=== PATIENT | female | born 1990 | race Caucasian/White ===

== ENCOUNTER 2018-10-29 01:10 | Emergency (ER) | payer OTHER ==
--- OUTSIDE RECORDS SUMMARY | 2018-10-29 01:21 | XMS REPORT | Continuity of Care Document ---
:1990 External Reference #:[id number] Author Name Tim Reed M.D. Address [address] [facility] [address] [place] [address] Care Team Providers Name Role Phone HCP given Primary Care Physician Unavailable Payers Type Date Identification Numbers Payment Provider Subscriber Policy Number: [id number] [employer] [facility] Gina Whittaker PayID: [id number] [address] [place] [id number] Policy Number: [id number] Medicaid Gina Whittaker PayID: [id number] [place] [address] Effective: 2012 Policy Number: [employer] ([place] MGD) Gina Whittaker [id number] Expires: 2018 PayID: [id number] [address] [place] [id number] Advance Directives Description No Information Available Problems Date Description Provider Status Onset: 09/07/2014 Opioid dependence Tim Reed M.D. Active Onset: 09/07/2014 Anxiety state Tim Reed M.D. Active Onset: 06/18/2015 Opioid dependence, uncomplicated Tim Reed M.D. Active Onset: 09/14/2015 Dysthymic disorder Tim Reed M.D. Active Family History Date Family Member(s) Problem(s) Comments Mother High Blood Pressure : (06/2017) Mother due to Breast Cancer (age 48 Years) Mother Hypercholesterolemia Children 5 Fourth Daughter Clubbed Feet Siblings 4 4 brothers : (06/2017) Maternal Grandmother due to Natural Causes Social History Type Date Description Comments Sex Unknown Education Ged Marital Status Work Status Currently Working at [employer] (started March 2017) Tobacco Use Reviewed: current cigarette smoker 1ppd 06/24/14 Smoking Status Reviewed: current cigarette smoker 1ppd 01/25/17 ETOH Use 06/24/2014 Denies alcohol use Recreational Drug Use Has Used Illegal Drugs smoking MJ at age 14, In The Past opiates startin at age 17 (initially pills, then progressively stronger meds, to Opana and Oxy, then to heroin (snorted, never used IV drugs). 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 Exercise Type/Frequency Exercises regularly Sun Exposure Uses sunscreen Seat Belt/Car Seat Seat Belt Use - Yes Currently Active Patient is currently sexually active Condom Use Uses Condoms Age 1st [place] 15 Years Old # Partners in a 06/24/2014 Partners 1-5 Lifetime STD's 11/2015 Trichomoniasis Additional Info Sexual preference is men Allergies, Adverse Reactions, Alerts Date Description Reaction Status Severity Comments 06/24/2014 Penicillins Active anaphylactic reaction 11/19/2015 Sulfa Active hallucinating, skin sunburned Medications Medication Date Status Form Strength Qnty SIG Indications Ordering Provider Buprenorphine 10/25/ Active Tablets 8mg 90tabs 1 tablet F11.20 [place], HCL 2019 Sub 3x/day; Tim, prescriber# Rodney [id number]; may fill immediately Sertraline HCL 01/08/ Active Tablets 100mg 30tabs 1 by mouth O90.6 [place], 2018 every day Tim for mood M.D. F34.1 F41.9 Omeprazole 10/31/[address] 40mg 30caps 1 by mouth K29.00 [place], every morning Rodney Dumont for belly pain/acid reflux K21.9 Famotidine 10/31/2017 Active Tablets 20mg 30tabs take one tablet K29.00 [place], by mouth 10 Rodney Dumont minutes before supper; for belly pain/acid reflux K21.9 Sucralfate 10/31/2017 Active Tablets 1gm 40tabs 1 tab 1 hour K29.00 [place], before meals or Tim food and at M.DNestor bedtime; as needed for burning belly pain Ibuprofen 08/18/2014 Active Tablets 800m 1 by mouth 724.5 [place]ff, g every 8 hours Tim, as needed for M.D. back pain Gabapentin 08/15/2014 Active Tablets 600m 90tabs Take 1 Tablet F41.9 [place], g By Mouth Every Tim, Day AT 9Am, M.D. 12PM, And 5PM as Needed Suboxone 10/14/2018 Hx Film 8-2m 90units 1 by mouth F11.20 [place]ff, - g 3x/day; Rx due Tim, 10/25/2018 10/16/18; Rodney prescriber# [id number] Buprenorphine 08/16/2018 Hx Tablets 8mg 90tabs 1 tablet F11.20 [place], HCL - Sub 3x/day; Tim, 10/14/2018 prescriberNancy Stevens [id number] Buprenorphine 06/21/2018 Hx Tablets 8mg 90tabs 1/2 tablet F11.20 [place], HCL - Sub dissolved under [place], 08/16/2018 tongue q4h as M.D. needed for tooth pain; prescriber# [id number] Buprenorphine 01/08/2018 Hx Tablets 8mg 60tabs 1/2 tab F11.20 [place], HCL - Sub dissolved under [place], 06/21/2018 tongue 4x/day; M.D. rx due 05/25/18; prescriber# [id number] Buprenorphine 12/11/2017 Hx Tablets 8mg 60tabs 1/2 tab F11.20 [place], HCL - Sub dissolved under [place], 01/08/2018 tongue 4x/day M.D. x2d then 3x/d x3d then 2x/d; inc to 4x/d after dental surgery; prescriber# [id number] Buprenorphine 12/05/2017 Hx Tablets 8mg 14tabs 1/2 tablet F11.20 [place], HCL - Sub dissolved under [place], 12/11/2017 tongue 4x/day, M.D. for pain and opiate addiction; prescriber# [id number] Clindamycin HCL 10/29/2017 Hx Capsules 150m 1 caps by mouth Noren, - g three times a Stephen, 11/05/2017 day for DDS infected teeth Clindamycin HCL 09/03/2017 Hx Capsules 300m Take One Unknown - g Capsule By 09/17/2017 Mouth Every 6 Hours Bupropion HCL ER 02/07/2017 Hx Tablets 150m 60tabs 1 by mouth qam F17.210 [place]ff, (SR) - ER 12HR g x3 days then 1 Tim, 03/09/2017 pill 2x/day; M.D. take 2nd dose no later than mid afternoon; start 8-14 days before quit date Erythromycin 08/28/2016 Hx Tablets 500m 28tabs Take 1 Tablet Unknown Base - g By Mouth Every 09/09/2016 6 Hours Metronidazole 02/14/2016 Hx Tablets 500m 4tabs 4 by mouth x1 Z20.2 [place], - g dose for Tim, 02/15/2016 possible M.D. trichomoniasis Metronidazole 11/11/2015 Hx Tablets 250m 27tabs 1 tablet po Unknown - g twice a day 11/25/2015 Phenazopyridine 11/08/2015 Hx Tablets 100m 7tabs take 2 tablets Unknown HCL - g by mouth 3 11/15/2015 times a day as needed Sulfamethoxazole 11/08/2015 Hx Tablets 800- 14tabs take 1 tablet Unknown /Trimethoprim DS - 160m by mouth twice 11/09/2015 g a day x 7 days Sertraline HCL 09/14/2015 Hx Tablets 50mg 30tabs take 1 tablet O90.6 [place], - daily for mood Tim, 01/08/2018 M.D. F34.1 F41.9 Sertraline HCL 08/17/2015 - Hx Tablets 50mg 30tabs take 1/2 O90.6 [place], 09/14/2015 tablet daily Rodney Dumont for 1 week then 1 tab daily; for mood F34.1 F41.9 Buprenorphine 02/05/2015 - Hx Tablets 8mg 30tabs 1 by mouth F11.20 [place], HCL 12/05/2017 Sub every Tim, morning; for M.D. opioid addiction; prescriber# [id number]; Rx due 12/06/17 Folic Acid 02/05/2015 - Hx Tablets 400mcg 30tabs 1 by mouth V22.2 [place], 02/06/2016 every day Tim, during M.D. Buprenorphine 01/12/2015 - Hx Tablets 8-2mg 30tabs 1 by mouth 304.00 [place]ff, HCL-Naloxone HCL 01/12/2015 Sub every Tim, morning; M.D. suboxone prescriber# [id number] Buspar 09/13/2014 - Hx Tablet 10mg 60tabs Take 1 Tablet [place]ff, 08/16/2015 AT 8Am And Tim 8SHANNAN Stevens Buspirone HCL 08/15/2014 - Hx Tablets 10mg 60tabs Take 1 Tablet 300.00 Unknown 09/13/2014 AT 8 Am And again at 8 PM Mirtazapine 08/15/2014 - Hx Tablets 15mg 30tabs Take 1 Tablet F41.9 [place], 10/11/2015 AT 5PM Rodney Dumnot G47.00 Ibuprofen 08/14/2014 - Hx Tablets 800mg 1 by mouth every 6 724.5 Unknown 08/18/2014 hours as needed for back pain Suboxone 08/14/2014 - Hx Film 8-2mg 30uni 1 by mouth every 304.00 [place], 02/11/2015 ts morning; due Tim, 01/12/15; suboxone Rodney prescriber# [id number] Naproxen - Hx Tablets 250mg 1 by mouth three Unknown 11/05/2017 times a day as needed for back pain; minimize use to minimize gastrointestinal bleeding risk Immunizations CPT Code Status Date Vaccine Lot # [id number] Given 06/21/2018 Influenza Virus Vaccine, Quadrivalent, Split, [id number] Preservative Free 60039 Given 07/02/2017 Influenza Virus Vaccine, Quadrivalent, Split, [id number] Preservative Free 62009 Given 07/14/2016 Influenza Virus Vaccine, Quadrivalent, Split, [id number] Preservative Free 07498 Given 07/26/2015 Influenza Virus Vaccine, Quadrivalent, Split, Preservative Free 65745 Given 07/19/2015 Adacel or Boostrix, TDaP Vital Signs Date Vital Result Comment 10/25/2018 4:36pm BP Systolic 136 mmHg BP Diastolic 76 mmHg 10/14/2018 11:22am BP Systolic 110 mmHg BP Diastolic 70 mmHg Weight 182.00 lb 09/16/2018 10:36am BP Systolic 120 mmHg BP Diastolic 78 mmHg Weight 180.00 lb w/boots 08/16/2018 11:43am BP Systolic 114 mmHg BP Diastolic 68 mmHg Height 63 inches 5'3" Weight 174.00 lb BMI (Body Mass Index) 30.8 kg/m2 07/19/2018 11:52am BP Systolic 120 mmHg BP Diastolic 62 mmHg 06/21/2018 11:36am BP Systolic 110 mmHg BP Diastolic 70 mmHg Weight 173.00 lb 05/24/2018 1:20pm BP Systolic 110 mmHg BP Diastolic 70 mmHg Weight 175.00 lb with sneakers 04/22/2018 2:27pm BP Systolic 122 mmHg BP Diastolic 70 mmHg 03/20/2018 10:45am BP Systolic 120 mmHg BP Diastolic 60 mmHg Weight 171.00 lb 02/20/2018 11:39am BP Systolic 110 mmHg BP Diastolic 60 mmHg Weight 169.00 lb w/shoes 01/21/2018 3:29pm BP Systolic 108 mmHg BP Diastolic 76 mmHg Weight 169.00 lb w/shoes 01/08/2018 2:57pm BP Systolic 104 mmHg BP Diastolic 58 mmHg Weight 168.00 lb 12/11/2017 4:13pm BP Systolic 108 mmHg BP Diastolic 64 mmHg Weight 159.00 lb 12/03/2017 3:33pm BP Systolic 106 mmHg BP Diastolic 70 mmHg Height 63 inches 5'3" Weight 164.00 lb BMI (Body Mass Index) 29.0 kg/m2 11/06/2017 2:34pm BP Systolic 128 mmHg BP Diastolic 70 mmHg 10/31/2017 10:18am BP Systolic 110 mmHg BP Diastolic 70 mmHg Body Temperature 98.4 F Weight 167.00 lb w/boots and coat 10/03/2017 10:33am BP Systolic 100 mmHg BP Diastolic 68 mmHg Weight 166.00 lb w/boots 09/04/2017 2:16pm BP Systolic 104 mmHg BP Diastolic 60 mmHg Weight 164.00 lb w/shoes 08/07/2017 3:04pm BP Systolic 102 mmHg BP Diastolic 70 mmHg Weight 167.00 lb w/boots 07/02/2017 1:21pm BP Systolic 122 mmHg BP Diastolic 68 mmHg Weight 166.00 lb 06/08/2017 4:55pm BP Systolic 100 mmHg BP Diastolic 68 mmHg Weight 168.00 lb with sneakers 05/09/2017 10:38am BP Systolic 100 mmHg BP Diastolic 60 mmHg Height 63 inches 5'3" Weight 170.00 lb BMI (Body Mass Index) 30.1 kg/m2 04/10/2017 12:50pm BP Systolic 110 mmHg BP Diastolic 78 mmHg Weight 174.00 lb with sneakers 03/09/2017 3:22pm BP Systolic 118 mmHg BP Diastolic 80 mmHg Weight 175.00 lb 02/07/2017 11:17am BP Systolic 102 mmHg BP Diastolic 70 mmHg Weight 175.00 lb with shoes 01/25/2017 2:29pm BP Systolic 90 mmHg BP Diastolic 60 mmHg Body Temperature 98.2 F Weight 170.00 lb w/shoes 01/08/2017 12:27pm BP Systolic 100 mmHg BP Diastolic 50 mmHg Weight 170.00 lb 12/05/2016 10:59am BP Systolic 104 mmHg BP Diastolic 64 mmHg 11/06/2016 1:24pm BP Systolic 106 mmHg BP Diastolic 60 mmHg Weight 168.00 lb 10/06/2016 1:24pm BP Systolic 104 mmHg BP Diastolic 50 mmHg Weight 165.00 lb w/shoes and coat 09/08/2016 10:47am BP Systolic 110 mmHg BP Diastolic 60 mmHg Height 63 inches 5'3" w/shoes Weight 160.00 lb w/shoes BMI (Body Mass Index) 28.3 kg/m2 08/09/2016 8:37am BP Systolic 116 mmHg BP Diastolic 70 mmHg 07/14/2016 12:53pm BP Systolic 115 mmHg BP Diastolic 78 mmHg Weight 160.00 lb with shoes 06/12/2016 10:56am BP Systolic 108 mmHg BP Diastolic 60 mmHg Weight 154.00 lb with sandals 05/10/2016 11:08am BP Systolic 108 mmHg BP Diastolic 60 mmHg 04/14/2016 9:46am BP Systolic 106 mmHg BP Diastolic 60 mmHg Weight 149.00 lb 03/15/2016 12:13pm BP Systolic 110 mmHg BP Diastolic 70 mmHg Weight 149.00 lb 02/14/2016 1:31pm BP Systolic 110 mmHg BP Diastolic 76 mmHg Weight 149.00 lb w/shoes 01/14/2016 10:59am BP Systolic 104 mmHg BP Diastolic 70 mmHg Height 63 inches 5'3" Weight 132.00 lb BMI (Body Mass Index) 23.4 kg/m2 12/17/2015 12:12pm BP Systolic 124 mmHg BP Diastolic 56 mmHg 11/19/2015 4:30pm BP Systolic 100 mmHg BP Diastolic 66 mmHg Body Temperature 98.0 F Weight 131.00 lb w/shoes 11/09/2015 9:45am BP Systolic 114 mmHg BP Diastolic 66 mmHg Weight 137.00 lb w/shoes 10/12/2015 10:10am BP Systolic 110 mmHg BP Diastolic 60 mmHg Weight 139.00 lb with boots 09/14/2015 11:59am BP Systolic 98 mmHg BP Diastolic 60 mmHg Weight 132.00 lb with boots 08/17/2015 10:54am BP Systolic 114 mmHg BP Diastolic 60 mmHg Weight 130.00 lb 07/20/2015 11:35am BP Systolic 98 mmHg BP Diastolic 50 mmHg Height 63 inches 5'3" Weight 140.00 lb BMI (Body Mass Index) 24.8 kg/m2 06/18/2015 10:33am BP Systolic 98 mmHg BP Diastolic 58 mmHg Weight 145.00 lb with shoes 05/21/2015 1:46pm BP Systolic 104 mmHg BP Diastolic 58 mmHg Weight 140.00 lb 05/10/2015 3:19pm BP Systolic 110 mmHg BP Diastolic 62 mmHg Weight 139.00 lb 04/19/2015 4:44pm BP Systolic 104 mmHg BP Diastolic 64 mmHg Weight 137.00 lb 04/09/2015 11:55am BP Systolic 102 mmHg BP Diastolic 60 mmHg Weight 143.00 lb with shoes 03/05/2015 11:57am BP Systolic 115 mmHg BP Diastolic 62 mmHg Weight 135.00 lb 02/05/2015 12:05pm BP Systolic 110 mmHg BP Diastolic 50 mmHg Weight 139.00 lb shoes on 01/08/2015 11:39am BP Systolic 104 mmHg BP Diastolic 72 mmHg Weight 146.00 lb shoes on 12/11/2014 11:22am BP Systolic 128 mmHg BP Diastolic 80 mmHg Height 63 inches 5'3" Weight 147.00 lb BMI (Body Mass Index) 26.0 kg/m2 11/13/2014 11:26am BP Systolic 106 mmHg BP Diastolic 58 mmHg Weight 144.00 lb 10/19/2014 1:13pm BP Systolic 114 mmHg BP Diastolic 76 mmHg Weight 141.00 lb shoes on 10/05/2014 12:24pm BP Systolic 104 mmHg BP Diastolic 60 mmHg Weight 141.00 lb w/shoes 09/21/2014 10:34am BP Systolic 108 mmHg BP Diastolic 68 mmHg Weight 141.00 lb boots on 09/07/2014 10:14am BP Systolic 112 mmHg BP Diastolic 78 mmHg 08/31/2014 1:52pm BP Systolic 112 mmHg BP Diastolic 72 mmHg Weight 142.00 lb 08/24/2014 3:19pm BP Systolic 120 mmHg BP Diastolic 82 mmHg Weight 144.00 lb 08/18/2014 11:18am BP Systolic 124 mmHg BP Diastolic 70 mmHg Weight 147.00 lb 06/29/2014 12:07pm BP Systolic 104 mmHg BP Diastolic 60 mmHg Weight 136.00 lb shoes on 06/24/2014 2:27pm BP Systolic 100 mmHg BP Diastolic 60 mmHg Height 62.75 inches 5'2.75" Weight 131.00 lb BMI (Body Mass Index) 23.4 kg/m2 Last Menstrual Period [id number] Results Test Date Facility Test Result H/L Range Note Urine Drug Screen Inhouse 09/27/2018 In House Ua Cocaine - Ua Opiates - Ua Amphetamines - Urine Methanphetamines - Urine Benzodiazepines QN [place] - Urine Oxycodone QL - Urine Drug Screen Inhouse 09/06/2018 In House Ua Cocaine - Ua Opiates - Ua Amphetamines - Urine Methanphetamines - Urine Benzodiazepines QN [place] - Urine Oxycodone QL - Urine Drug Screen Inhouse 05/24/2018 In House Ua Cocaine - Ua Opiates - Ua Amphetamines - Urine Methanphetamines - Urine Benzodiazepines QN [place] - Urine Oxycodone QL - Urine Drug Screen Inhouse 09/04/2017 In House Ua Cocaine - Ua Opiates - Ua Amphetamines - Urine Methanphetamines - Urine Benzodiazepines QN [place] - Urine Oxycodone QL - Chlamydia/GC [place] 01/21/2017 [facility]. Chlamydia Negative Negative 1 LABORATORY Trachomatis, [place] [phone] Neisseria Gonorrhoeae, [place] Negative Negative Please note: (SEE NOTE) 2 Urine Drug Screen Inhouse 10/06/2016 In House Ua Cocaine - Ua Opiates - Ua Amphetamines - Urine Methanphetamines - Urine Benzodiazepines QN [place] - Urine Oxycodone QL - Urine Drug Screen Inhouse 06/12/2016 In House Ua Cocaine _ Ua Opiates _ Ua Amphetamines _ Urine Methanphetamines _ Urine Benzodiazepines QN [place] _ Urine Oxycodone QL _ Urine Drug Screen Inhouse 12/17/2015 In House Ua Cocaine - Ua Opiates - Ua Amphetamines - Urine Methanphetamines - Urine Benzodiazepines QN [place] - Urine Oxycodone QL - Urinalysis Profile 11/13/2015 [facility] Urine Color Yellow N [phone] Urine Appearance Clear N Urine Specific [place] 1.009 Low 1.010-1.030 Urine pH 7.0 N 5-9 Urine Urobilinogen Negative N Negative Urine Ketones Negative N Negative Urine Protein Negative N Negative Urine Leukocytes Trace Abnormal Negative Urine Blood 2+ Abnormal Negative Urine Nitrite Negative N Negative Urine Bilirubin Negative N Negative Urine Glucose Negative N Negative Urine White Blood Cell Trace(0-5/hpf) N Absent Urine Red Blood Cell Trace(0-2/hpf) N Absent Urine Bacteria Absent N Absent Urine Squamous Epithelial Cell Present Abnormal Absent Laboratory test 11/13/2015 [facility] Urine Culture And SEE RESULT 3 finding [phone] Sensitivities BELOW Laboratory test 11/11/2015 [facility] [place]/Yeast: SEE RESULT 4 finding [phone] Vaginal Dna BELOW GC/Chlamydia 11/11/2015 [facility] Chlamydia Negative N Negative Amplified Rna [phone] trachomatis Rna Neisseria gonorrhoeae (GC) Rna Negative N Negative Laboratory 11/11/2015 [facility] Trichomonas Positive Abnormal Negative 5 test finding [phone] vaginalis Rna Urinalysis 11/11/2015 [facility] Urine Color [place] N Profile [phone] Urine Appearance Cloudy N Urine Specific [place] 1.030 N 1.010-1.030 Urine pH 6.0 N 5-9 Urine Urobilinogen Negative N Negative Urine Ketones Negative N Negative Urine Protein 3+(>=500 mg/dL) Abnormal Negative Urine Leukocytes 2+ Abnormal Negative Urine Blood 3+ Abnormal Negative * * Abnormal Negative 6 Urine Nitrite Negative N Negative Urine Bilirubin Negative N Negative Urine Glucose Negative N Negative Urine White Blood Cell 3+(>20/hpf) Abnormal Absent Urine Red Blood Cell 3+(>10/hpf) Abnormal Absent Urine Bacteria Absent N Absent Urine Squamous Epithelial Cell Present Abnormal Absent Laboratory test 11/11/2015 [facility] Urine Culture And SEE RESULT 7 finding [phone] Sensitivities BELOW CBC Auto Diff 11/08/2015 [facility] White Blood Count 7.3 10^3/uL N 3.5-10 [phone] Red Blood Count 4.82 10^6/uL N 4.0-5.4 Hemoglobin 12.4 g/dL N 12.0-16.0 Hematocrit 40 % N 35-47 Mean Corpuscular Volume 83 fL N 80-97 Mean Corpuscular Hemoglobin 26 pg Low 27-31 Mean Corpuscular HGB Conc 31 g/dL N 31-36 Red Cell Distribution Width 17 % High 10.5-15 Platelet Count 278 10^3/uL N 150-450 Mean Platelet Volume 8 um3 N 7.4-10.4 Abs Neutrophils 3.9 10^3/uL N 1.5-7.7 Abs Lymphocytes 2.5 10^3/uL N 1.0-4.8 Abs Monocytes 0.6 10^3/uL N 0-0.8 Abs Eosinophils 0.4 10^3/uL N 0-0.6 Abs Basophils 0.1 10^3/uL N 0-0.2 Abs Nucleated RBC 0 10^3/uL N Granulocyte % 53.3 % N 38-83 Lymphocyte % 33.6 % N 25-47 Monocyte % 7.5 % N 1-9 Eosinophil % 4.8 % N 0-6 Basophil % 0.8 % N 0-2 Nucleated Red Blood Cells % 0.1 N Urinalysis Profile 11/08/2015 [facility] Urine Color Straw N [phone] Urine Appearance Clear N Urine Specific [place] 1.004 Low 1.010-1.030 Urine pH 8.0 N 5-9 Urine Urobilinogen Negative N Negative Urine Ketones Negative N Negative Urine Protein Negative N Negative Urine Leukocytes 1+ Abnormal Negative Urine Blood 3+ Abnormal Negative Urine Nitrite Negative N Negative Urine Bilirubin Negative N Negative Urine Glucose Negative N Negative Urine White Blood Cell 3+(>20/hpf) Abnormal Absent Urine Red Blood Cell 3+(>10/hpf) Abnormal Absent Urine Bacteria Absent N Absent Urine Squamous Epithelial Cell Present Abnormal Absent Comp Metabolic Panel 11/08/2015 [facility] Sodium 136 mmol/L N 133- 145 [phone] Potassium 4.5 mmol/L N 3.5-5.0 Chloride 106 mmol/L N 101-111 Co2 Carbon Dioxide 26 mmol/L N 22-32 Anion Gap 4 mmol/L N 2-11 Glucose 92 mg/dL N 70-100 Blood Urea Nitrogen 7 mg/dL N 6-24 Creatinine 0.65 mg/dL N 0.51-0.95 BUN/Creatinine Ratio 10.8 N 8-20 Calcium 9.5 mg/dL N 8.6-10.3 Total Protein 7.1 g/dL N 6.4-8.9 Albumin 4.2 g/dL N 3.2-5.2 Globulin 2.9 g/dL N 2-4 Albumin/Globulin Ratio 1.4 N 1-3 Total Bilirubin 0.50 mg/dL N 0.2-1.0 Alkaline Phosphatase 55 U/L N 34-104 Alt 13 U/L N 7-52 Ast 16 U/L N 13-39 Egfr Non- 111.1 N >60 Egfr 142.8 N >60 8 Laboratory test finding 11/08/2015 [facility] Magnesium 1.9 mg/dL N 1.9-2.7 [phone] HCG < 0.60 mIU/mL N 9 TSH (Thyroid Stim Horm) 0.92 ?IU/mL N 0.34-5.60 Urine Culture And Sensitivities SEE RESULT BELOW 10 Laboratory test 07/14/2015 [facility] Rupture of No Membrane N No rupture 11 finding [phone] Membranes Rupt <SEE NOTE> Type & Screen 07/14/2015 [facility] Patient Blood A Positive N [phone] Type Antibody Screen NEGATIVE N CBC No Diff 07/14/2015 [facility] White Blood Count 13.8 10^3/uL High 4.8-10.8 [phone] Red Blood Count 3.70 10^6/uL Low 4.0-5.4 Hemoglobin 10.2 g/dL Low 12.0-16.0 Hematocrit 32 % Low 35-47 Mean Corpuscular Volume 85 fL N 80-97 Mean Corpuscular Hemoglobin 28 pg N 27-31 Mean Corpuscular HGB Conc 32 g/dL N 31-36 Red Cell Distribution Width 14 % N 10.5-15 Platelet Count 178 10^3/uL N 150-450 Mean Platelet Volume 7 um3 Low 7.4-10.4 Laboratory test 07/01/2015 [facility] Urine Culture And SEE RESULT 12 finding [phone] Sensitivities BELOW Urinalysis Profile 07/01/2015 [facility] Urine Color [place] N [phone] Urine Appearance Clear N Urine Specific [place] 1.027 N 1.010-1.030 Urine pH 6.0 N 5-9 Urine Urobilinogen Positive Abnormal Negative Urine Ketones Negative N Negative Urine Protein 1+(30 mg/dL) Abnormal Negative Urine Leukocytes 2+ Abnormal Negative Urine Blood Negative N Negative Urine Nitrite Negative N Negative Urine Bilirubin 1+ Abnormal Negative Urine Glucose Negative N Negative Urine White Blood Cell 3+(>20/hpf) Abnormal Absent Urine Red Blood Cell 3+(>10/hpf) Abnormal Absent Urine Bacteria 1+ Abnormal Absent Urine Squamous Epithelial Cell Present Abnormal Absent Urine Drug Screen Inhouse 05/21/2015 In House Ua Cocaine - Ua Opiates - Ua Amphetamines - Urine Methanphetamines - Urine Benzodiazepines QN [place] - Urine Oxycodone QL - Comp Metabolic Panel 04/20/2015 [facility] Sodium 132 mmol/L Low 133- 145 [phone] Potassium 4.0 mmol/L N 3.5-5.0 Chloride 103 mmol/L N 101-111 Co2 Carbon Dioxide 21 mmol/L Low 22-32 Anion Gap 8 mmol/L N 2-11 Glucose 82 mg/dL N 70-100 Blood Urea Nitrogen 4 mg/dL Low 6-24 Creatinine 0.46 mg/dL Low 0.51-0.95 BUN/Creatinine Ratio 8.7 N 8-20 Calcium 8.5 mg/dL Low 8.6-10.3 Total Protein 6.1 g/dL Low 6.4-8.9 Albumin 3.4 g/dL N 3.2-5.2 Globulin 2.7 g/dL N 2-4 Albumin/Globulin Ratio 1.3 N 1-3 Total Bilirubin 0.40 mg/dL N 0.2-1.0 Alkaline Phosphatase 73 U/L N 34-104 Alt 14 U/L N 7-52 Ast 17 U/L N 13-39 Egfr Non- 166.9 N >60 Egfr 214.6 N >60 13 CBC Auto Diff 04/20/2015 [facility] White Blood Count 7.9 10^3/uL N 4.8-10.8 [phone] Red Blood Count 4.27 10^6/uL N 4.0-5.4 Hemoglobin 12.1 g/dL N 12.0-16.0 Hematocrit 38 % N 35-47 Mean Corpuscular Volume 88 fL N 80-97 Mean Corpuscular Hemoglobin 28 pg N 27-31 Mean Corpuscular HGB Conc 32 g/dL N 31-36 Red Cell Distribution Width 15 % N 10.5-15 Platelet Count 269 10^3/uL N 150-450 Mean Platelet Volume 8 um3 N 7.4-10.4 Abs Neutrophils 4.5 10^3/uL N 1.5-7.7 Abs Lymphocytes 2.5 10^3/uL N 1.0-4.8 Abs Monocytes 0.6 10^3/uL N 0-0.8 Abs Eosinophils 0.2 10^3/uL N 0-0.6 Abs Basophils 0.1 10^3/uL N 0-0.2 Abs Nucleated RBC 0 10^3/uL N Granulocyte % 56.7 % N 38-83 Lymphocyte % 31.9 % N 25-47 Monocyte % 7.8 % N 1-9 Eosinophil % 2.9 % N 0-6 Basophil % 0.7 % N 0-2 Nucleated Red Blood Cells % 0 N Urine Drug Screen Inhouse 08/31/2014 In House Urine THC Screen tnp 14 Ua Cocaine - Ua Opiates - Ua Amphetamines - Urine Methanephrine Random tnp Urine Phenyclidine GC/MS tnp Urine Mdma QN Random tnp Ua Barbiturates tnp Urine Benzodiazepines QN [place] - Ua Methadone tnp Urine Tricyclc Antidepress RND tnp Urine Oxycodone QL - Urine Drug Screen Inhouse 08/18/2014 In House Urine THC Screen tnp Ua Cocaine - Ua Opiates - Ua Amphetamines - Urine Methanephrine Random - Urine Phenyclidine GC/MS tnp Urine Mdma QN Random tnp Ua Barbiturates tnp Urine Benzodiazepines QN [place] - Ua Methadone tnp Urine Tricyclc Antidepress RND tnp Urine Oxycodone QL - 1 HAS IUD, CAUSING PAIN, SPOTING, WANT CHECKED 2 A negative result for either C. trachomatis and/or N. gonorrhoeae does not preclued an infection because results are dependent on adequate specimen collection, absence of inhibitors, and sufficient DNA to be detected. A negative result for either C. trachomatis and/or N. gonorrhoeae does not preclued an infection because results are dependent on adequate specimen collection, absence of inhibitors, and sufficient DNA to be detected. 3 SEE RESULT BELOW Name: GINA WHITTAKER : [address]: Ricky Nelson MD Acct: [id number] Unit: [id number] AGE: 25 Location: ED Re11/13/15 SEX: F Status: DEP ER SPEC: [id number] [place]: 11/13/15-[address] [facility] [address]: Donna Rodrigues MD REQ: [id number] RECD: 11/14/15 STATUS: COMP SHILPIHR DR: Tim Reed MD _ SOURCE: URINE SPDESC: ORDERED: Urine Culture Procedure Result Reported Site Urine Culture Final 11/15/15- 926 ML No Growth (<1,000 CFU/mL) * ML - MAIN LAB ([facility]) . END OF REPORT * ML=Testing performed at Main Lab DEPARTMENT OF PATHOLOGY, [address] [place] [address] Rubens Workman M.D. Director [facility] # [id number] 4 SEE RESULT BELOW Name: GINA WHITTAKER : [address]: Lc Dixon MD Acct: [id number] Unit: [id number] AGE: 25 Location: ED Re11/10/15 SEX: F Status: DEP ER SPEC: [id number] DENNY: 11/11/[address]: Dora PEARSON REQ: [id number] RECD: 11/11/15 STATUS: KRYS MORA DR: Tim Dixon MD _ SOURCE: VAGINAL SPDESC: ORDERED: Lucia,Yeast DNA Procedure Result Reported Site Gardnerella/Yeast: Vaginal DNA Final 11/11/15- 1137 ML Organism 1 POSITIVE GARDNERELLA Organism 2 Negative Emily The presence of G. vaginalis, although suggestive, is not diagnostic for bacterial vaginosis. Results should be interpreted in conjuction with other clinical and laboratory data available. Women with vaginal discharge should be evaluated for risk factors of cervicitis and pelvic inflammatory disease, toxic shock syndrome (S.aureus), and if present, evaluated for organisms not included in this assay such as N. gonorrhoeae, C. trachomatis, Mobiluncus, Mycoplasma and/or Prevotella. Mixed infections may occur. The performance of this test on patient specimens collected during or immediately after antimicrobial therapy is unknown. The presence or absence of Emily species, or G. vaginalis cannot be used as a test for therapeutic success or failure. * ML - MAIN LAB ([facility]) . END OF REPORT * ML=Testing performed at Main Lab DEPARTMENT OF PATHOLOGY, [address] [place] [address] Rubens Workman M.D. Director [facility] # [id number] 5 GC/Chlamydia Source?: Endocervical Trichomonas Source: Endocervical 6 *Ascorbic acid is present which may interfere with detection of blood. 7 SEE RESULT BELOW Name: GINA WHITTAKER : [address]: Lc Dixon MD Acct: [id number] Unit: [id number] AGE: 25 Location: ED Re11/10/15 SEX: F Status: DEP ER SPEC: [id number] DENNY: 11/11/[address] [facility] [address]: Lc Dixon MD REQ: [id number] RECD: 11/11/15 STATUS: KRYS MORA DR: Tim Reed MD _ SOURCE: URINE SPDESC: ORDERED: Urine Culture Procedure Result Reported Site Urine Culture Final 11/12/15- 1122 ML No growth of clinically significant organisms * ML - MAIN LAB ([facility]) . END OF REPORT * ML=Testing performed at Main Lab DEPARTMENT OF PATHOLOGY, [address] [place] [address] Rubens Workman M.D. Director [facility] # [id number] 8 Because ethnic data is not always readily available, this report includes an eGFR for both -Americans and non- Americans. The National Kidney Disease Education Program (NKDEP) does not endorse the use of the MDRD equation for patients that are not between the ages of 18 and 70, are , have extremes of body size, muscle mass, or nutritional status, or are non- or non-. According to the National Kidney Foundation, irrespective of diagnosis, the stage of the disease is based on the level of kidney function: Stage Description GFR(mL/min/1.73 m(2)) 1 Kidney damage with normal or decreased GFR 90 2 Kidney damage with mild decrease in GFR 60-89 3 Moderate decrease in GFR 30-59 4 Severe decrease in GFR 15-29 5 Kidney failure <15 (or dialysis) 9 <5.0 Negative 5.0 - 25.0 Indeterminate (Repeat testing recommended after 72 hours) >25.0 Positive Perimenopausal women can display HCG levels of up to 20 mIU/mL 10 SEE RESULT BELOW Name: GINA WHITTAKER : [address]: Jp Sin MD Acct: [id number] Unit: [id number] AGE: 25 Location: ED Re11/08/15 SEX: F Status: DEP ER SPEC: [id number] DENNY: 11/08/[address]: Jp Sin MD REQ: [id number] RECD: 11/08/15 STATUS: KRYS DOBBINS DR: Tim Reed MD _ SOURCE: URINE SPDESC: ORDERED: Urine Culture Procedure Result Reported Site Urine Culture Final 11/10/15- 1108 ML Few Enterobacteriacae; possible contamination. * ML - MAIN LAB ([facility]) . END OF REPORT * ML=Testing performed at Main Lab DEPARTMENT OF PATHOLOGY, [address] [place] [address] Rubens Workman M.D. Director [facility] # [id number] 11 No Membrane Rupture 12 SEE RESULT BELOW Name: GINA WHITTAKER : [address]: Katty Xie MD Acct: [id number] Unit: [id number] AGE: 24 Location: [facility] Re07/01/15 SEX: F Status: DEP REF SPEC: [id number] DENNY: 07/01/[address] [facility] [address]: Katty Xie MD REQ: [id number] RECD: 07/01/15 STATUS: KRYS MORA DR: Tim Reed MD _ SOURCE: URINE SPDESC: ORDERED: Urine Culture QUERIES: Urine Source: Random Procedure Result Verified Site Urine Culture Final 07/03/15- 0942 ML No Growth Day 2 (<1,000 CFU/mL) * ML - MAIN LAB ([facility]) . END OF REPORT * ML=Testing performed at Main Lab DEPARTMENT OF PATHOLOGY, [address] [place] [address] Rubens Workman M.D. Director [facility] # [id number] 13 Because ethnic data is not always readily available, this report includes an eGFR for both -Americans and non- Americans. The National Kidney Disease Education Program (NKDEP) does not endorse the use of the MDRD equation for patients that are not between the ages of 18 and 70, are , have extremes of body size, muscle mass, or nutritional status, or are non- or non-. According to the National Kidney Foundation, irrespective of diagnosis, the stage of the disease is based on the level of kidney function: Stage Description GFR(mL/min/1.73 m(2)) 1 Kidney damage with normal or decreased GFR 90 2 Kidney damage with mild decrease in GFR 60-89 3 Moderate decrease in GFR 30-59 4 Severe decrease in GFR 15-29 5 Kidney failure <15 (or dialysis) 14 Methamphetamine (-) Procedures Description No Information Available Encounters Type Date Location Provider Dx Diagnosis Office Visit 10/25/2018 4:00p Main Office Tim Reed M.D. R51 Headache F11.20 Opioid dependence, uncomplicated Office Visit 10/14/2018 11:15a Main Office Derek F11.20 Opioid Tim jaffe M.D. uncomplicated Z71.51 Drug abuse counseling and surveillance of drug abuser R87.612 Low grade intrepith lesion cyto smr crvx (LGSIL) Office Visit 09/16/2018 10:15a Main Office Yayo Reed1.20 Opioid dependenceTim M.D. 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 uncomplicated Z71.51 Drug abuse counseling and surveillance of drug abuser K08.9 Disorder of teeth and supporting structures, unspecified Office Visit 07/19/2018 11:15a Main Office Derek F11.20 Opioid Tim jaffe M.D. uncomplicated Z71.51 Drug abuse counseling and surveillance of drug abuser K08.9 Disorder of teeth and supporting structures, unspecified Office Visit 06/21/2018 11:00a Main Office Derek F11.20 Opioid Tim jaffe M.D. uncomplicated K08.9 Disorder of teeth and supporting structures, unspecified K21.9 Gastro-esophageal reflux disease without esophagitis Z23 Encounter for immunization R23.3 Spontaneous ecchymoses Office Visit 05/24/2018 1:15p Main Office Derek F11.20 Opioid Tim jaffe M.D. uncomplicated K21.9 Gastro-esophageal reflux disease without esophagitis K08.9 Disorder of teeth and supporting structures, unspecified Z23 Encounter for immunization Z71.51 Drug abuse counseling and surveillance of drug abuser Office Visit 04/22/2018 2:30p Main Office Yayo Reed1.20 Opioid dependenceTim M.D. uncomplicated Z71.51 Drug abuse counseling and surveillance of drug abuser K08.9 Disorder of teeth and supporting structures, unspecified K21.9 Gastro-esophageal reflux disease without esophagitis Office Visit 03/20/2018 10:30a Main Office Yayo Reed1.20 Opioid dependenceTim M.D. uncomplicated Z71.51 Drug abuse counseling and surveillance of drug abuser K08.9 Disorder of teeth and supporting structures, unspecified Office Visit 02/20/2018 11:30a Main Office Yayo Reed1.20 Opioid dependenceTim M.D. uncomplicated Z71.51 Drug abuse counseling and surveillance of drug abuser K08.9 Disorder of teeth and supporting structures, unspecified Office Visit 01/21/2018 3:00p Main Office Yayo Reed1.20 Opioid dependenceTim M.D. uncomplicated Z71.51 Drug abuse counseling and surveillance of drug abuser K08.9 Disorder of teeth and supporting structures, unspecified Office Visit 01/08/2018 2:30p Main Office Yayo Reed1.20 Opioid dependenceTim M.D. uncomplicated Z71.51 Drug abuse counseling and surveillance of drug abuser K08.9 Disorder of teeth and supporting structures, unspecified F41.9 Anxiety disorder, unspecified Office Visit 12/11/2017 4:00p Main Office Yayo Reed1.Paulino Opioid dependenceTim M.D. uncomplicated Z71.51 Drug abuse counseling and surveillance of drug abuser K08.9 Disorder of teeth and supporting structures, unspecified Z41.8 [facility] Anxiety disorder, unspecified F34.1 Dysthymic disorder Office Visit 12/03/2017 3:45p Main Office Derek F11.20 Opioid dependenceTim M.D. uncomplicated Z71.51 Drug abuse counseling and surveillance of drug abuser F41.9 Anxiety disorder, unspecified F34.1 Dysthymic disorder K08.9 Disorder of teeth and supporting structures, unspecified K21.9 Gastro-esophageal reflux disease without esophagitis K29.00 Acute gastritis without bleeding Office Visit 11/06/2017 2:30p Main Office Tim Reed K29.00 Acute gastritis M.D. without bleeding K21.9 Gastro-esophageal reflux disease without esophagitis K08.9 Disorder of teeth and supporting structures, unspecified F11.20 Opioid dependence, uncomplicated Z71.51 Drug abuse counseling and surveillance of drug abuser F41.9 Anxiety disorder, unspecified F34.1 Dysthymic disorder Office Visit 10/31/2017 10:15a Main Office Tim Reed, K29.00 Acute gastritis M.D. without bleeding K21.9 Gastro-esophageal reflux disease without esophagitis K08.9 Disorder of teeth and supporting structures, unspecified Office Visit 10/03/2017 10:30a Main Office Derek F11.20 Opioid dependenceTim M.D. uncomplicated Z71.51 Drug abuse counseling and surveillance of drug abuser F41.9 Anxiety disorder, unspecified F34.1 Dysthymic disorder Office Visit 09/04/2017 2:00p Main Office Derek F11.20 Opioid dependenceTim M.D. uncomplicated Z71.51 Drug abuse counseling and surveillance of drug abuser F41.9 Anxiety disorder, unspecified F34.1 Dysthymic disorder N83.202 Unspecified ovarian cyst, left side Office Visit 08/07/2017 2:30p Main Office Derek F11.20 Opioid dependenceTim M.D. uncomplicated Z71.51 Drug abuse counseling and surveillance of drug abuser N83.202 Unspecified ovarian cyst, left side F41.9 Anxiety disorder, unspecified F34.1 Dysthymic disorder Office Visit 07/02/2017 1:15p Main Office Dreek F11.20 Opioid Tim jaffe M.D. uncomplicated Z71.51 Drug abuse counseling and surveillance of drug abuser N83.202 Unspecified ovarian cyst, left side F41.9 Anxiety disorder, unspecified F34.1 Dysthymic disorder Z23 Encounter for immunization Office Visit 06/08/2017 4:00p Main Office Derek F11.Paulino Opioid Tim jaffe M.D. uncomplicated Z71.51 Drug abuse counseling and surveillance of drug abuser F34.1 Dysthymic disorder F41.9 Anxiety disorder, unspecified N83.202 Unspecified ovarian cyst, left side Office Visit 05/09/2017 10:30a Main Office Derek F11.20 Opioid dependenceTim M.D. uncomplicated Z71.51 Drug abuse counseling and surveillance of drug abuser F34.1 Dysthymic disorder F41.9 Anxiety disorder, unspecified N83.202 Unspecified ovarian cyst, left side Office Visit 04/10/2017 12:55p Main Office Derek F11.20 Opioid dependence, Rodney Dumont uncomplicated Z71.51 Drug abuse counseling and surveillance of drug abuser F34.1 Dysthymic disorder F41.9 Anxiety disorder, unspecified R60.0 Localized edema Office Visit 03/09/2017 2:30p Main Office Derek F11.20 Opioid dependence, Rodney Dumont uncomplicated Z71.51 Drug abuse counseling and surveillance of drug abuser F34.1 Dysthymic disorder F41.9 Anxiety disorder, unspecified F17.210 Nicotine dependence, cigarettes, uncomplicated Office Visit 02/07/2017 11:15a Main Office Derek F11.20 Opioid dependence, Rodney Dumont uncomplicated Z71.51 Drug abuse counseling and surveillance of drug abuser F34.1 Dysthymic disorder F41.9 Anxiety disorder, unspecified F17.210 Nicotine dependence, cigarettes, uncomplicated Office Visit 01/25/2017 2:00p Main Office Lisaredjoao Jarad, N63 Unspecified lump in D.O. breast N83.201 Unspecified ovarian cyst, right side Office Visit 01/08/2017 11:30a Main Office Derek F11.20 Opioid dependence, Rodney Dumont uncomplicated Z71.51 Drug abuse counseling and surveillance of drug abuser F34.1 Dysthymic disorder F41.9 Anxiety disorder, unspecified Office Visit 12/05/2016 10:30a Main Office Derek F11.20 Opioid dependenceTim M.D. uncomplicated Z71.51 Drug abuse counseling and surveillance of drug abuser F41.9 Anxiety disorder, unspecified Office Visit 11/06/2016 1:30p Main Office Derek F11.20 Opioid dependenceTim M.D. uncomplicated Z71.51 Drug abuse counseling and surveillance of drug abuser F41.9 Anxiety disorder, unspecified Office Visit 10/06/2016 1:15p Main Office Derek F11.20 Opioid dependenceTim M.D. uncomplicated Z71.51 Drug abuse counseling and surveillance of drug abuser F41.9 Anxiety disorder, unspecified K08.9 Disorder of teeth and supporting structures, unspecified Office Visit 09/08/2016 10:45a Main Office Derek F11.20 Opioid dependence, Rodney Dumont uncomplicated Z71.51 Drug abuse counseling and surveillance of drug abuser F41.9 Anxiety disorder, unspecified Office Visit 08/09/2016 8:30a Main Office Derek F11.20 Opioid dependenceTim M.D. uncomplicated Z71.Uche Drug abuse counseling and surveillance of drug abuser F41.9 Anxiety disorder, unspecified Office Visit 07/14/2016 12:55p Main Office Derek F11.20 Opioid dependenceTim M.D. uncomplicated Z71.Uche Drug abuse counseling and surveillance of drug abuser Z41.8 Encntr for oth proc for purpose oth [facility] Z23 Encounter for immunization Office Visit 06/12/2016 10:45a Main Office Derek F11.20 Opioid dependenceTim M.D. uncomplicated Z71.Uche Drug abuse counseling and surveillance of drug abuser Office Visit 05/10/2016 11:00a Main Office Derek F11.20 Opioid dependenceTim M.D. uncomplicated Z71.Uche Drug abuse counseling and surveillance of drug abuser F41.9 Anxiety disorder, unspecified Office Visit 04/14/2016 9:30a Main Office Derek F11.20 Opioid dependenceTim M.D. uncomplicated F41.9 Anxiety disorder, unspecified F34.1 Dysthymic disorder Z71.51 Drug abuse counseling and surveillance of drug abuser Office Visit 03/15/2016 11:30a Main Office Derek F11.20 Opioid dependenceTim M.D. uncomplicated F41.9 Anxiety disorder, unspecified F34.1 Dysthymic disorder Office Visit 02/14/2016 1:30p Main Office Derek F11.20 Opioid dependenceTim M.D. uncomplicated F41.9 Anxiety disorder, unspecified F34.1 Dysthymic disorder Z20.2 Contact w and exposure to infect w a sexl mode of transmiss Office Visit 01/14/2016 10:15a Main Office Derek F11.20 Opioid dependenceTim M.D. uncomplicated F41.9 Anxiety disorder, unspecified F34.1 Dysthymic disorder Office Visit 12/17/2015 11:30a Main Office Derek F11.20 Opioid dependence, Rodney Dumont uncomplicated F34.1 Dysthymic disorder F41.9 Anxiety disorder, unspecified F17.210 Nicotine dependence, cigarettes, uncomplicated Z71.51 Drug abuse counseling and surveillance of drug abuser Office Visit 11/19/2015 4:00p Main Office Lc Moon.89 Other specified Rodney Flores soft tissue disorders K02.9 Dental caries, unspecified Office Visit 11/09/2015 9:30a Main Office Derek F11.20 Opioid dependenceTim M.D. uncomplicated F34.1 Dysthymic disorder F41.9 Anxiety disorder, unspecified N39.0 Urinary tract infection, site not specified Office Visit 10/12/2015 9:45a Main Office Derek F11.20 Opioid Tim jaffe M.D. uncomplicated F34.1 Dysthymic disorder F41.9 Anxiety disorder, unspecified Office Visit 09/14/2015 11:15a Main Office Derek F11.20 Opioid dependenceTim M.D. uncomplicated F34.1 Dysthymic disorder F41.9 Anxiety disorder, unspecified Office Visit 08/17/2015 11:15a Main Office Derek F11.20 Opioid dependenceTim M.D. uncomplicated O90.6 mood disturbance F34.1 Dysthymic disorder Office Visit 07/20/2015 11:15a Main Office Derek F11.20 Opioid Tim jaffe M.D. uncomplicated Office Visit 06/18/2015 10:00a Main Office Derek F11.20 Opioid dependenceTim M.D. uncomplicated Office Visit 05/21/2015 1:30p Main Office Derek 304.00 Drug Dependence Rodney Dumont Opioid Type Unspec V58.83 Encounter For Therapeutic Drug Monitoring Office Visit 05/10/2015 3:00p Main Office Tim Reed 304.00 Drug Dependence Rodney Opioid Type Unspec V58.69 Medications Portable Track Line Marker (Current) Use Encounter 648.33 Drug Dependence Antepartum Cond Or Compl V22.2 State Incidental Normal 300.00 Anxiety State Unspec Office Visit 04/19/2015 4:45p Main Office Jarad Mead, 304.00 Drug Dependence D.O. Opioid Type Unspec V58.69 Medications Portable Track Line Marker (Current) Use Encounter 300.00 Anxiety State Unspec V22.2 State Incidental Normal 790.6 Abnormal Blood Chemistry Other Office Visit 04/09/2015 11:15a Main Office Tim Reed, 304.00 Drug Dependence M.D. Opioid Type Unspec V58.69 Medications Chcf (Current) Use Encounter 300.00 Anxiety State Unspec V22.1 Supervison Of Normal Other Office Visit 03/05/2015 11:15a Main Office Tim Reed 304.00 Drug Dependence M.D. Opioid Type Unspec V58.69 Medications Chcf (Current) Use Encounter 300.00 Anxiety State Unspec 648.33 Drug Dependence Antepartum Cond Or Compl Office Visit 02/05/2015 11:30a Main Office Tim Reed 304.00 Drug Dependence M.D. Opioid Type Unspec V58.69 Medications Portable Track Line Marker (Current) Use Encounter 300.00 Anxiety State Unspec 648.33 Drug Dependence Antepartum Cond Or Compl V22.2 State Incidental Normal Office Visit 01/08/2015 11:15a Main Office Tim Reed 304.00 Drug Dependence M.D. Opioid Type Unspec V58.69 Medications Chcf (Current) Use Encounter V58.83 Encounter For Therapeutic Drug Monitoring 300.00 Anxiety State Unspec Office Visit 12/11/2014 11:00a Main Office Tim Reed 304.00 Drug Dependence M.D. Opioid Type Unspec 300.00 Anxiety State Unspec V58.69 Medications Portable Track Line Marker (Current) Use Encounter Office Visit 11/13/2014 11:15a Main Office Tim Reed 304.00 Drug Dependence M.D. Opioid Type Unspec V58.83 Encounter For Therapeutic Drug Monitoring V58.69 Medications Chcf (Current) Use Encounter 300.00 Anxiety State Unspec Office Visit 10/19/2014 1:15p Main Office Tim Reed 304.00 Drug Dependence M.D. Opioid Type Unspec V58.83 Encounter For Therapeutic Drug Monitoring V58.69 Medications Chcf (Current) Use Encounter Office Visit 10/05/2014 11:30a Main Office Tim Reed 304.00 Drug Dependence M.D. Opioid Type Unspec V58.83 Encounter For Therapeutic Drug Monitoring V58.69 Medications Chcf (Current) Use Encounter Office Visit 09/21/2014 10:45a Main Office Tim Reed, 304.00 Drug Dependence M.D. Opioid Type Unspec V58.83 Encounter For Therapeutic Drug Monitoring V58.69 Medications Portable Track Line Marker (Current) Use Encounter V22.2 State Incidental Normal Office Visit 09/07/2014 10:45a Main Office Tim Reed 304.00 Drug Dependence M.D. Opioid Type Unspec V58.83 Encounter For Therapeutic Drug Monitoring V58.69 Medications Portable Track Line Marker (Current) Use Encounter 300.00 Anxiety State Unspec V22.2 State Incidental Normal Office Visit 08/31/2014 1:45p Main Office Tim Reed 304.00 Drug Dependence M.D. Opioid Type Unspec V58.83 Encounter For Therapeutic Drug Monitoring V58.69 Medications Chcf (Current) Use Encounter Office Visit 08/24/2014 3:00p Main Office Tim Reed 304.00 Drug Dependence M.D. Opioid Type Unspec Office Visit 08/18/2014 11:00a Main Office Tim Reed 304.00 Drug Dependence M.D. Opioid Type Unspec 300.00 Anxiety State Unspec 724.5 Backache Unspec V58.83 Encounter For Therapeutic Drug Monitoring Office Visit 06/29/2014 11:15a Main Office Tim Reed 304.00 Drug Dependence M.D. Opioid Type Unspec Office Visit 06/24/2014 2:00p Main Office Tim Reed 304.00 Drug Dependence M.D. Opioid Type Unspec 305.1 Tobacco Use Disorder Plan of Treatment Future Appointment(s):10/30/2018 8:40 am - Kavitha Calhoun PA at Main [email or web address] 11:45 am - Tim Reed M.D. at Main [facility]0010/25/2018 - Tim eRed M.D.R51 HeadacheComments:Suspect migraine variant sec to Suboxone. Advised she us Ibuprofen 600mg q6h prn, switch Suboxone back to plain buprenorphine. I contacted her pharmacy and discussed this w/ her pharmacist and they areon board. If headache is not much better in 1-2 days she will call me back (I provided her my cell #to use this weekend).F11.20 Opioid dependence, uncomplicatedNew Medication:Buprenorphine HCL 8 mg - 1 tablet 3x/day; prescriber # [id number]; may fill immediately
--- OUTSIDE RECORDS SUMMARY | 2018-10-29 01:21 | XMS REPORT | Continuity of Care Document ---
:1990 External Reference #:[id number] Author Name Tim Reed M.D. Address [address] [facility] [address] [place] [address] Care Team Providers Name Role Phone HCP given Primary Care Physician Unavailable Payers Type Date Identification Numbers Payment Provider Subscriber Policy Number: [id number] [employer] [facility] Gina Whittaker PayID: [id number] [address] [place] [id number] Policy Number: [id number] Medicaid Gina Whittaker PayID: [id number] [address] [place] [address] Effective: 2012 Policy Number: [employer] ([place] MGD) Gina Whittaker [id number] Expires: 2018 PayID: [id number] [address] [place] [phone] Advance Directives Description No Information Available Problems [...] Marital Status Work Status Currently Working at [employer] (started March 2017) Tobacco Use Reviewed: current [...] active Condom Use Uses Condoms Age 1st Pence 15 Years Old # Partners in a 06/24/2014 Partners 1-5 Lifetime STD's 11/2015 Trichomoniasis Additional Info Sexual preference is men Allergies, Adverse Reactions, Alerts Date Description Reaction Status Severity Comments 06/24/2014 Penicillins Active anaphylactic reaction 11/19/2015 Sulfa Active hallucinating, skin sunburned Medications Medication Date Status Form Strength Qnty SIG Indications Ordering Provider Suboxone 10/14/19 Active Film 8-2mg 90units 1 by F11.20 Silcoff, 19 mouth Tim, 3x/day; M.D. Rx due 10/16/18; prescrib er# [id number] Sertraline HCL 01/09/20 Active Tablets 100mg 30tabs 1 by O90.6 Silcoff, 18 mouth Tim, every M.D. day for mood F34.1 F41.9 Omeprazole 10/31/[address] 40mg 30caps 1 by mouth K29.00 Silcoff, every morning Rodney Dumont for belly pain/acid reflux K21.9 Famotidine 10/31/2017 Active Tablets 20mg 30tabs take one tablet K29.00 Silcoff, by mouth 10 Rodney Dumont minutes before supper; for belly pain/acid reflux K21.9 Sucralfate 10/31/2017 Active Tablets 1gm 40tabs 1 tab 1 hour K29.00 Silcoff, before meals or Tim, food and at M.D. bedtime; as needed for burning belly pain Ibuprofen 08/18/2014 Active Tablets 800m 1 by mouth 724.5 Silcoff, g every 8 hours Tim, as needed for M.D. back pain Gabapentin 08/15/2014 Active Tablets 600m 90tabs Take 1 Tablet F41.9 Silcoff, g By Mouth Every Tim, Day AT 9Am, M.D. 12PM, And 5PM as Needed Buprenorphine 08/16/2018 Hx Tablets 8mg 90tabs 1 tablet F11.20 Silcoff, HCL - Sub 3x/day; Tim, 10/14/2018 prescriber# Rodney [id number] Buprenorphine 06/21/2018 Hx Tablets 8mg 90tabs 1/2 tablet F11.20 Silcoff, HCL - Sub dissolved under [place], 08/16/2018 tongue q4h as M.D. needed for tooth pain; prescriber# [id number] Buprenorphine 01/08/2018 Hx Tablets 8mg 60tabs 1/2 tab F11.20 Silcoff, HCL - Sub dissolved under [place], 06/21/2018 tongue 4x/day; M.D. rx due 05/25/18; prescriber# [id number] Buprenorphine 12/11/2017 Hx Tablets 8mg 60tabs 1/2 tab F11.20 Silcoff, HCL - Sub dissolved under [place], 01/08/2018 tongue 4x/day M.D. x2d then 3x/d x3d then 2x/d; inc to 4x/d after dental surgery; prescriber# [id number] Buprenorphine 12/05/2017 Hx Tablets 8mg 14tabs 1/2 tablet F11.20 Silcoff, HCL - Sub dissolved under [place], 12/11/2017 tongue 4x/day, M.D. for pain and opiate addiction; prescriber# [id number] Clindamycin HCL 10/29/2017 Hx Capsules 150m 1 [...] Tim, morning; for M.D. opioid addiction; prescriber# [id number]; Rx due 12/06/17 Folic Acid 02/05/2015 - Hx Tablets 400mcg 30tabs 1 by mouth V22.2 Silcoff, 02/06/2016 every day Tim, during M.D. Buprenorphine 01/12/2015 - Hx Tablets 8-2mg 30tabs 1 by mouth 304.00 Silcoff, HCL-Naloxone HCL 01/12/2015 Sub every Tim, morning; M.D. suboxone prescriber# [id number] Buspar 09/13/2014 - Hx Tablet 10mg 60tabs Take 1 Tablet Silcoff, 08/16/2015 AT 8Am And Tim, 8PM M.DNestor Buspirone HCL 08/15/2014 - Hx Tablets 10mg 60tabs Take 1 Tablet 300.00 Unknown 09/13/2014 AT 8 Am And again at 8 PM Mirtazapine 08/15/2014 - Hx Tablets 15mg 30tabs Take 1 Tablet F41.9 Silcoff, 10/11/2015 AT 5PM Rodney Dumont G47.00 Ibuprofen 08/14/2014 - Hx Tablets 800mg 1 by mouth every 6 724.5 Unknown 08/18/2014 hours as needed for back pain Suboxone 08/14/2014 - Hx Film 8-2mg 30uni 1 by mouth every 304.00 Silcoff, 02/11/2015 ts morning; due Tim, 01/12/15; vadim Stevens prescriber# [id number] Naproxen - Hx Tablets 250mg 1 by mouth three Unknown 11/05/2017 times a day as needed for back pain; minimize use to minimize gastrointestinal bleeding risk Immunizations CPT Code Status Date Vaccine Lot # [id number] Given 06/21/2018 Influenza Virus Vaccine, Quadrivalent, Split, [id number] Preservative Free 01495 Given 07/02/2017 Influenza Virus Vaccine, Quadrivalent, Split, [id number] Preservative Free 07186 Given 07/14/2016 Influenza Virus Vaccine, Quadrivalent, Split, [id number] Preservative Free 22079 Given 07/26/2015 Influenza Virus Vaccine, Quadrivalent, Split, Preservative Free 03249 Given 07/19/2015 Adacel or Boostrix, TDaP Vital Signs Date Vital Result Comment 10/14/2018 11:22am BP Systolic 110 mmHg BP [...] Mass Index) 23.4 kg/m2 Last Menstrual Period [id number] Results Test Date Facility Test Result H/L Range Note Urine Drug Screen Inhouse 09/27/2018 In House [facility] Cocaine - [facility]a Opiates - [facility]a Amphetamines - Urine Methanphetamines - Urine Benzodiazepines QN [place] - Urine Oxycodone QL - Urine Drug Screen Inhouse 09/06/2018 In House Ua Cocaine - Ua Opiates - Ua Amphetamines - Urine Methanphetamines - Urine Benzodiazepines QN [place] - Urine Oxycodone QL - Urine Drug Screen Inhouse 05/24/2018 In House Ua Cocaine - Ua Opiates - Ua Amphetamines - Urine Methanphetamines - Urine Benzodiazepines QN [place] - Urine Oxycodone QL - Urine Drug Screen Inhouse 09/04/2017 In House Ua Cocaine - Ua Opiates - Ua Amphetamines - Urine Methanphetamines - Urine Benzodiazepines QN [place] - Urine Oxycodone QL - Chlamydia/GC [place] 01/21/2017 [facility]. Chlamydia Negative Negative 1 LABORATORY Trachomatis, [place] [phone] Neisseria Gonorrhoeae, [place] Negative Negative Please note: (SEE NOTE) 2 Urine Drug Screen Inhouse 10/06/2016 In House Ua Cocaine - Ua Opiates - Ua Amphetamines - Urine Methanphetamines - Urine Benzodiazepines QN [place] - Urine Oxycodone QL - Urine Drug Screen Inhouse 06/12/2016 In House Ua Cocaine _ Ua Opiates _ Ua Amphetamines _ Urine Methanphetamines _ Urine Benzodiazepines QN [place] _ Urine Oxycodone QL _ Urine Drug Screen Inhouse 12/17/2015 In House Ua Cocaine - Ua Opiates - Ua Amphetamines - Urine Methanphetamines - Urine Benzodiazepines QN [place] - Urine Oxycodone QL - Urinalysis Profile 11/13/2015 [facility] Urine Color Yellow N [phone] Urine Appearance Clear N Urine Specific Ragley 1.009 Low 1.010-1.030 Urine pH 7.0 N [...] Cell Present Abnormal Absent Laboratory test 11/13/2015 [facility] Urine Culture And SEE RESULT 3 finding [phone] Sensitivities BELOW Laboratory test 11/11/2015 [facility] Gardnerella/Yeast: SEE RESULT 4 finding [phone] Vaginal Dna BELOW GC/Chlamydia 11/11/2015 [facility] Chlamydia Negative N Negative Amplified Rna [phone] trachomatis Rna Neisseria gonorrhoeae (GC) Rna Negative N Negative Laboratory 11/11/2015 [facility] Trichomonas Positive Abnormal Negative 5 test finding [phone] vaginalis Rna Urinalysis 11/11/2015 [facility] Urine Color Elda N Profile [phone] Urine Appearance Cloudy N Urine Specific Ragley 1.030 N 1.010-1.030 Urine pH 6.0 N [...] Cell Present Abnormal Absent Laboratory test 11/11/2015 [facility] Urine Culture And SEE RESULT 7 finding [phone] Sensitivities BELOW CBC Auto Diff 11/08/2015 [facility] White Blood Count 7.3 10^3/uL N 3.5-10 [phone] .[phone] Red Blood Count 4.82 10^6/uL N [...] Cells % 0.1 N Urinalysis Profile 11/08/2015 [facility] Urine Color Straw N [phone] Urine Appearance Clear N Urine Specific Ragley 1.004 Low 1.010-1.030 Urine pH 8.0 N [...] Present Abnormal Absent Comp Metabolic Panel 11/08/2015 [facility] Sodium 136 mmol/L N 133- 145 [phone] Potassium 4.5 mmol/L N 3.5-5.0 Chloride 106 [...] N >60 8 Laboratory test finding 11/08/2015 [facility] Magnesium 1.9 mg/dL N 1.9-2.7 [phone] HCG < 0.60 mIU/mL N 9 TSH (Thyroid Stim Horm) 0.92 ?IU/mL N 0.34-5.60 Urine Culture And Sensitivities SEE RESULT BELOW 10 Laboratory test 07/14/2015 [facility] Rupture of No Membrane N No rupture 11 finding [phone] Membranes Rupt <SEE NOTE> Type & Screen 07/14/2015 [facility] Patient Blood A Positive N [phone] Type Antibody Screen NEGATIVE N CBC No Diff 07/14/2015 [facility] White Blood Count 13.8 10^3/uL High 4.8-10.8 [phone] Red Blood Count 3.70 10^6/uL Low 4.0-5.4 Hemoglobin 10.2 g/dL Low 12.0-16.0 Hematocrit 32 % Low 35-47 Mean Corpuscular Volume 85 fL N 80-97 Mean Corpuscular Hemoglobin 28 pg N 27-31 Mean Corpuscular HGB Conc 32 g/dL N 31-36 Red Cell Distribution Width 14 % N 10.5-15 Platelet Count 178 10^3/uL N 150-450 Mean Platelet Volume 7 um3 Low 7.4-10.4 Laboratory test 07/01/2015 [facility] Urine Culture And SEE RESULT 12 finding [phone] Sensitivities BELOW Urinalysis Profile 07/01/2015 [facility] Urine Color Elda N [phone] Urine Appearance Clear N Urine Specific Ragley 1.027 N 1.010-1.030 Urine pH 6.0 N [...] - Urine Methanphetamines - Urine Benzodiazepines QN [place] - Urine Oxycodone QL - Comp Metabolic Panel 04/20/2015 [facility] Sodium 132 mmol/L Low 133- 145 [phone] Potassium 4.0 mmol/L N 3.5-5.0 Chloride 103 [...] N >60 13 CBC Auto Diff 04/20/2015 [facility] White Blood Count 7.9 10^3/uL N 4.8-10.8 [phone] Red Blood Count 4.27 10^6/uL N 4.0-5.4 [...] tnp Ua Barbiturates tnp Urine Benzodiazepines QN [place] - Ua Methadone tnp Urine Tricyclc Antidepress RND tnp Urine Oxycodone QL - Urine Drug Screen Inhouse 08/18/2014 In House Urine THC Screen tnp Ua Cocaine - Ua Opiates - Ua Amphetamines - Urine Methanephrine Random - Urine Phenyclidine GC/MS tnp Urine Mdma QN Random tnp Ua Barbiturates tnp Urine Benzodiazepines QN [place] - Ua Methadone tnp Urine Tricyclc Antidepress [...] [address]: Ricky Nelson MD Acct: [id number] Unit: [id number] AGE: 25 Location: ED Re/13/16 SEX: F Status: DEP ER SPEC: [id number] DENNY: 11/13/[address] [facility] [address]: Donna Rodrigues MD REQ: [id number] RECD: 11/14/15 STATUS: COMP SHILPIHR DR: Tim Reed MD _ SOURCE: URINE SPDESC: ORDERED: Urine Culture Procedure Result Reported Site Urine Culture Final 11/15/15- 926 ML No Growth (<1,000 CFU/mL) * ML - MAIN LAB ([facility]) . END OF REPORT * ML=Testing performed at Main Lab DEPARTMENT OF PATHOLOGY, [address] [place] [address] Rubens Workman M.D. Director [facility] # [id number] 4 SEE RESULT BELOW Name: GINA WHITTAKER : [address]: Lc Dixon MD Acct: [id number] Unit: [id number] AGE: 25 Location: ED Re11/10/15 SEX: F Status: DEP ER SPEC: [id number] DENNY: 11/11/[address]: Dora PEARSON REQ: [id number] RECD: 11/11/15 STATUS: KRYS MORA DR: Tim Dixon MD _ SOURCE: VAGINAL SPDESC: ORDERED: LuciaYeast DNA Procedure Result Reported Site Gardnerella/Yeast: Vaginal [...] or failure. * ML - MAIN LAB ([facility]) . END OF REPORT * ML=Testing performed at Main Lab DEPARTMENT OF PATHOLOGY, [address] [place] [address] Rubens Workman M.D. Director [facility] # [id number] 5 GC/Chlamydia Source?: Endocervical Trichomonas Source: Endocervical 6 *Ascorbic acid is present which may interfere with detection of blood. 7 SEE RESULT BELOW Name: GINA WHITTAKER : [address]: Lc Dixon MD Acct: [id number] Unit: [id number] AGE: 25 Location: ED Re11/10/15 SEX: F Status: DEP ER SPEC: [id number] DENNY: 11/11/15-[address]: Lc Dixon MD REQ: [id number] RECD: 11/11/15 STATUS: KRYS MORA DR: Tim Reed MD _ SOURCE: URINE SPDESC: ORDERED: Urine Culture Procedure Result Reported Site Urine Culture Final 11/12/15- 1122 ML No growth of clinically significant organisms * ML - MAIN LAB ([facility]) . END OF REPORT * ML=Testing performed at Main Lab DEPARTMENT OF PATHOLOGY, [address] [place] [address] Rubens Workman M.D. Director [facility] # [id number] 8 Because ethnic data is not always [...] [address]: Jp Sin MD Acct: [id number] Unit: [id number] AGE: 25 Location: ED Re11/08/15 SEX: F Status: DEP ER SPEC: [id number] DEN[place]: 11/08/15-[address] [facility] [address]: Jp Sin MD REQ: [id number] RECD: 11/08/15 STATUS: COMP SHILPIHR DR: Tim Reed MD _ SOURCE: URINE SPDESC: ORDERED: Urine Culture Procedure Result Reported Site Urine Culture Final 11/10/15- 1108 ML Few Enterobacteriacae; possible contamination. * ML - MAIN LAB ([facility]) . END OF REPORT * ML=Testing performed at Main Lab DEPARTMENT OF PATHOLOGY, [address], [place], [place] [address] Rubens Workman M.D. Director [facility] # [id number] 11 No Membrane Rupture 12 SEE RESULT BELOW Name: GINA WHITTAKER : [address]: Katty Xie MD Acct: [id number] Unit: [id number] AGE: 24 Location: [facility] Re07/01/15 SEX: F Status: DEP REF SPEC: [id number] DEN[place]: 07/01/[address] [facility] [address]: Katty Xie MD REQ: [id number] RECD: 07/01/15 STATUS: KRYS MORA DR: Tim Reed MD _ SOURCE: URINE SPDESC: ORDERED: Urine Culture QUERIES: Urine Source: Random Procedure Result Verified Site Urine Culture Final 07/03/15- 0942 ML No Growth Day 2 (<1,000 CFU/mL) * ML - MAIN LAB ([facility]) . END OF REPORT * ML=Testing performed at Main Lab DEPARTMENT OF PATHOLOGY, [address] [place] [address] Rubens Workman M.D. Director [facility] # [id number] 13 Because ethnic data is not always [...] Date Location Provider Dx Diagnosis Office Visit 10/14/2018 Main Office Tim Reed, F11.20 Opioid dependence, 11:15a Rodney uncomplicated Z71.51 Drug abuse counseling and surveillance of drug abuser R87.612 Low grade intrepith lesion cyto smr crvx (LGSIL) Office Visit 09/16/2018 10:15a Main Office Yayo Reed1.20 Opioid dependenceTim M.D. uncomplicated Z71.51 Drug abuse counseling and surveillance of drug abuser Z12.4 Encounter for screening for malignant neoplasm of cervix Z79.899 Other retread builder (current) drug therapy Office Visit 08/16/2018 11:15a Main Office Yayo Reed1.20 Opioid Tim jaffe M.D. uncomplicated Z71.51 Drug abuse counseling and surveillance of drug abuser K08.9 Disorder of teeth and supporting structures, unspecified Office Visit 07/19/2018 11:15a Main Office Yayo Reed1.20 Opioid dependenceTim M.D. uncomplicated Z71.51 Drug abuse counseling and surveillance of drug abuser K08.9 Disorder of teeth and supporting structures, unspecified Office Visit 06/21/2018 11:00a Main Office Yayo Reed1.20 Opioid Tim jaffe M.D. uncomplicated K08.9 Disorder of teeth and supporting structures, unspecified K21.9 Gastro-esophageal reflux disease without esophagitis Z23 Encounter for immunization R23.3 Spontaneous ecchymoses Office Visit 05/24/2018 1:15p Main Office Yayo Reed1.Paulino Opioid Tim jaffe M.D. uncomplicated K21.Randi Gastro-esophageal reflux disease without esophagitis K08.9 Disorder of teeth and supporting structures, unspecified Z23 Encounter for immunization Z71.51 Drug abuse counseling and surveillance of drug abuser Office Visit 04/22/2018 2:30p Main Office Yayo Reed1.Paulino Opioid Tim jaffe M.D. uncomplicated Z71.51 Drug abuse counseling and surveillance of drug abuser K08.9 Disorder of teeth and supporting structures, unspecified K21.9 Gastro-esophageal reflux disease without esophagitis Office Visit 03/20/2018 10:30a Main Office Yayo Reed1.20 Opioid dependenceTim M.D. uncomplicated Z71.51 Drug abuse counseling and surveillance of drug abuser K08.9 Disorder of teeth and supporting structures, unspecified Office Visit 02/20/2018 11:30a Main Office Silcoff, F11.20 Opioid dependence, Rodney Dumont uncomplicated Z71.51 Drug abuse counseling and surveillance of drug abuser K08.9 Disorder of teeth and supporting structures, unspecified Office Visit 01/21/2018 3:00p Main Office Derek F11.20 Opioid dependence, Rodney Dumont uncomplicated Z71.51 Drug abuse counseling and surveillance of drug abuser K08.9 Disorder of teeth and supporting structures, unspecified Office Visit 01/08/2018 2:30p Main Office Derek F11.20 Opioid dependence, Rodney Dumont uncomplicated Z71.51 Drug abuse counseling and surveillance of drug abuser K08.9 Disorder of teeth and supporting structures, unspecified F41.9 Anxiety disorder, unspecified Office Visit 12/11/2017 4:00p Main Office Derek F11.20 Opioid dependenceTim M.D. uncomplicated Z71.51 Drug abuse counseling and surveillance of drug abuser K08.9 Disorder of teeth and supporting structures, unspecified Z41.8 Encntr for oth proc for purpose oth [facility] F41.9 Anxiety disorder, unspecified F34.1 Dysthymic disorder Office Visit 12/03/2017 3:45p Main Office Derek F11.20 Opioid dependence, Rodney Dumont uncomplicated Z71.51 Drug abuse counseling and surveillance of drug abuser F41.9 Anxiety disorder, unspecified F34.1 Dysthymic disorder K08.9 Disorder of teeth and supporting structures, unspecified K21.9 Gastro-esophageal reflux disease without esophagitis K29.00 Acute gastritis without bleeding Office Visit 11/06/2017 2:30p Main Office Tim Reed, K29.00 Acute gastritis [...] 09/04/2017 2:00p Main Office Derek F11.20 Opioid Tim jaffe [...] disorder Office Visit 07/02/2017 1:15p Main Office Derek F11.20 Opioid dependenceTim M.D. uncomplicated Z71.51 Drug abuse counseling and surveillance of drug abuser N83.202 Unspecified ovarian cyst, left side F41.9 Anxiety disorder, unspecified F34.1 Dysthymic disorder Z23 Encounter for immunization Office Visit 06/08/2017 4:00p Main Office Derek F11.20 Opioid dependenceTim M.D. [...] 04/10/2017 12:55p Main Office Derek F11.20 Opioid dependenceTim [...] uncomplicated Office Visit 01/25/2017 2:00p Main Office Alyce Jarad, N63 Unspecified lump in D.O. breast N83.201 Unspecified ovarian cyst, right side Office Visit 01/08/2017 11:30a Main Office Derek F11.20 Opioid dependence, Rodney Dumont uncomplicated Z71.51 Drug abuse counseling and surveillance of drug abuser F34.1 Dysthymic disorder F41.9 Anxiety disorder, unspecified Office Visit 12/05/2016 10:30a Main Office Derek F11.20 Opioid dependence, Rodney Dumont uncomplicated Z71.51 Drug abuse counseling and surveillance of drug abuser F41.9 Anxiety disorder, unspecified Office Visit 11/06/2016 1:30p Main Office Derek F11.20 Opioid dependence, Rodney Dumont uncomplicated Z71.51 Drug abuse counseling and surveillance of drug abuser F41.9 Anxiety disorder, unspecified Office Visit 10/06/2016 1:15p Main Office Derek F11.20 Opioid dependence, Rodney Dumont uncomplicated Z71.51 Drug abuse counseling and surveillance of drug abuser F41.9 Anxiety disorder, unspecified K08.9 Disorder of teeth and supporting structures, unspecified Office Visit 09/08/2016 10:45a Main Office Derek F11.20 Opioid dependence, Rodney Dumont uncomplicated Z71.Uche Drug abuse counseling and surveillance of drug abuser F41.9 Anxiety disorder, unspecified Office Visit 08/09/2016 8:30a Main Office Derek F11.20 Opioid dependence, Rodney Dumont uncomplicated Z71.51 Drug abuse counseling and surveillance of drug abuser F41.9 Anxiety disorder, unspecified Office Visit 07/14/2016 12:55p Main Office Derek F11.20 Opioid dependence, Rodney Dumont uncomplicated Z71.51 Drug abuse counseling and surveillance of drug abuser Z41.8 Encntr for oth proc for purpose oth [facility] Z23 Encounter for immunization Office Visit 06/12/2016 10:45a Main Office Derek F11.20 Opioid dependence, Rodney Dumont uncomplicated Z71.51 Drug abuse counseling and surveillance of drug abuser Office Visit 05/10/2016 11:00a Main Office Derek F11.20 Opioid dependenceTim M.D. uncomplicated Z71.Uche Drug abuse counseling and surveillance of drug abuser F41.9 Anxiety disorder, unspecified Office Visit 04/14/2016 9:30a Main Office Derek F11.20 Opioid Tim jaffe M.D. uncomplicated F41.9 Anxiety disorder, unspecified F34.1 Dysthymic disorder Z71.51 Drug abuse counseling and surveillance of drug abuser Office Visit 03/15/2016 11:30a Main Office Derek F11.20 Opioid Tim jaffe M.D. uncomplicated F41.9 Anxiety disorder, unspecified F34.1 [...] Office Visit 11/19/2015 4:00p Main Office Lc Virgen89 Other specified Klepack, M.D. soft tissue disorders K02.9 Dental caries, unspecified Office Visit 11/09/2015 9:30a Main Office Derek F11.20 Opioid dependenceTim M.D. uncomplicated F34.1 Dysthymic disorder F41.9 Anxiety disorder, unspecified N39.0 Urinary tract infection, site not specified Office Visit 10/12/2015 9:45a Main Office Derek F11.20 Opioid dependenceTim M.D. uncomplicated F34.1 Dysthymic disorder F41.9 Anxiety disorder, unspecified Office Visit 09/14/2015 11:15a Main Office Derek F11.20 Opioid dependenceTim M.D. uncomplicated F34.1 Dysthymic disorder F41.9 Anxiety disorder, unspecified Office Visit 08/17/2015 11:15a Main Office Derek F11.20 Opioid Tim jaffe M.D. uncomplicated O90.6 mood disturbance F34.1 Dysthymic disorder Office Visit 07/20/2015 11:15a Main Office Derek F11.20 Opioid dependenceTim M.D. uncomplicated Office Visit 06/18/2015 10:00a Main Office Derek F11.20 Opioid dependenceTim M.D. uncomplicated Office Visit 05/21/2015 1:30p Main Office Derek, 304.00 Drug Dependence Rodney Dumont Opioid Type Unspec V58.83 Encounter For Therapeutic Drug Monitoring Office Visit 05/10/2015 3:00p Main Office Tim Reed, 304.00 Drug Dependence MNestorDNestor Opioid Type Unspec V58.69 Medications Skilled Nursing (Current) Use Encounter 648.33 Drug Dependence Antepartum Cond Or Compl V22.2 State Incidental Normal 300.00 Anxiety State Unspec Office Visit 04/19/2015 4:45p Main Office Jarad Mead, 304.00 Drug Dependence D.O. Opioid Type Unspec V58.69 Medications Skilled Nursing (Current) Use Encounter 300.00 Anxiety State Unspec V22.2 State Incidental Normal 790.6 Abnormal Blood Chemistry Other Office Visit 04/09/2015 11:15a Main Office Tim Reed, 304.00 Drug Dependence Rodney Opioid Type Unspec V58.69 Medications Skilled Nursing (Current) Use Encounter 300.00 Anxiety State Unspec V22.1 Supervison Of Normal Other Office Visit 03/05/2015 11:15a Main Office Tim Reed, 304.00 Drug Dependence M.D. Opioid Type Unspec V58.69 Medications Personalized Living Assistant (Current) Use Encounter 300.00 Anxiety State Unspec 648.33 Drug Dependence Antepartum Cond Or Compl Office Visit 02/05/2015 11:30a Main Office Tim Reed, 304.00 Drug Dependence M.D. Opioid Type Unspec V58.69 Medications Skilled Nursing (Current) Use Encounter 300.00 Anxiety State Unspec 648.33 Drug Dependence Antepartum Cond Or Compl V22.2 State Incidental Normal Office Visit 01/08/2015 11:15a Main Office Tim Reed 304.00 Drug Dependence M.D. Opioid Type Unspec V58.69 Medications Skilled Nursing (Current) Use Encounter V58.83 Encounter For Therapeutic Drug Monitoring 300.00 Anxiety State Unspec Office Visit 12/11/2014 11:00a Main Office Tim Reed 304.00 Drug Dependence M.D. Opioid Type Unspec 300.00 Anxiety State Unspec V58.69 Medications Personalized Living Assistant (Current) Use Encounter Office Visit 11/13/2014 11:15a Main Office iTm Reed 304.00 Drug Dependence M.D. Opioid Type Unspec V58.83 Encounter For Therapeutic Drug Monitoring V58.69 Medications Personalized Living Assistant (Current) Use Encounter 300.00 Anxiety State Unspec Office Visit 10/19/2014 1:15p Main Office Tim Reed, 304.00 Drug Dependence M.D. Opioid Type Unspec V58.83 Encounter For Therapeutic Drug Monitoring V58.69 Medications Skilled Nursing (Current) Use Encounter Office Visit 10/05/2014 11:30a Main Office Tim Reed, 304.00 Drug Dependence M.D. Opioid Type Unspec V58.83 Encounter For Therapeutic Drug Monitoring V58.69 Medications Skilled Nursing (Current) Use Encounter Office Visit 09/21/2014 10:45a Main Office Tim Reed, 304.00 Drug Dependence M.D. Opioid Type Unspec V58.83 Encounter For Therapeutic Drug Monitoring V58.69 Medications Personalized Living Assistant (Current) Use Encounter V22.2 State Incidental Normal Office Visit 09/07/2014 10:45a Main Office Tim Reed, 304.00 Drug Dependence M.D. Opioid Type Unspec V58.83 Encounter For Therapeutic Drug Monitoring V58.69 Medications Personalized Living Assistant (Current) Use Encounter 300.00 Anxiety State Unspec V22.2 State Incidental Normal Office Visit 08/31/2014 1:45p Main Office Tim Reed, 304.00 Drug Dependence M.D. Opioid Type Unspec V58.83 Encounter For Therapeutic Drug Monitoring V58.69 Medications Personalized Living Assistant (Current) Use Encounter Office Visit 08/24/2014 3:00p Main Office Tim Reed 304.00 Drug Dependence M.D. Opioid Type Unspec Office Visit 08/18/2014 11:00a Main Office Tim Reed 304.00 Drug Dependence M.D. Opioid Type Unspec 300.00 Anxiety State Unspec 724.5 Backache Unspec V58.83 Encounter For Therapeutic Drug Monitoring Office Visit 06/29/2014 11:15a Main Office Tim Reed, 304.00 Drug Dependence M.D. Opioid Type Unspec Office Visit 06/24/2014 2:00p Main Office Tim Reed 304.00 Drug Dependence M.D. Opioid Type Unspec 305.1 Tobacco Use Disorder Plan of Treatment 10/14/2018 - Tim Reed M.D.F11.20 Opioid dependence, uncomplicatedNew Medication:Suboxone 8-2 mg - 1 by mouth 3x/day; Rx due 10/16/18; prescriber# [id number] up:RTO 1 month.Z71.51 Drug abuse counseling and surveillance of drug yocbsoU65.612 Low grade squamous intraepithelial lesion on cytologic smearComments:Discussed need for repeat PAP> She will schedule an appt for this.Follow up:appt for PAP (w/ me, DL or DONYA)
--- NOTE | 2018-10-29 02:08 | ED ---
Medical Screening - HPI Summary HPI Summary: Patient presents with PD for legal blood draw. Denies any medical or physical complaints. - History of Current Complaint Chief Complaint: EDGeneral Stated Complaint: LEGAL BLOOD DRAW Time Seen by Provider: 10/29/18 01:29 Associated Signs and Symptoms: Negative PMH/Surg Hx/FS Hx/Imm Hx Endocrine/Hematology History: Denies: Hx Anticoagulant Therapy, Hx Diabetes, Hx Thyroid Disease Cardiovascular History: Denies: Hx Hypertension, Hx Pacemaker/ICD Respiratory History: Denies: Hx Asthma, Hx Chronic Obstructive Pulmonary Disease (COPD) History: Denies: Hx Dialysis, Hx Renal Disease Sensory History: Denies: Hx Eye Prosthesis Opthamlomology History: Denies: Hx Legally Blind EENT History: Denies: Hx Deafness Neurological History: Denies: Hx Dementia, Hx Seizures Psychiatric History: Reports: Hx Anxiety - DC from [facility] d/t , would like to start again, Hx Depression - not on meds, Hx Substance Abuse - pt reports being sober for approx 8 months, attend AA - Surgical History Surgery Procedure, Year, and Place: TONSILLECTOMY Infectious Disease History: No Infectious Disease History: Denies: Hx Hepatitis, Hx Human Immunodeficiency Virus (HIV), Traveled Outside the [place] in Last 30 Days - Family History Known Family History: Positive: None - reviewed & noncontributory - Social History Alcohol Use: None Hx Substance Use: Yes - IV drug use Substance Use Type: Reports: None Substance Use Comment - Amount & Last Used: Recently completed C[facility] for [facility] Hx Tobacco Use: Yes Smoking Status (MU): Current Every Day Smoker Type: Cigarettes Amount Used/How Often: 8-9 cigs Length of Time of Smoking/Using Tobacco: years Have You Smoked in the Last Year: Yes Review of Systems Constitutional: Negative Eyes: Negative ENT: Negative Cardiovascular: Negative Respiratory: Negative Gastrointestinal: Negative Genitourinary: Negative Musculoskeletal: Negative Skin: Negative Neurological: Negative Psychological: Normal All Other Systems Reviewed And Are Negative: Yes Physical Exam - Summary Physical Exam Summary: Physical exam unremarkable. Triage Information Reviewed: Yes Vital Signs On Initial Exam: Initial Vitals Temp Pulse Resp BP Pulse Ox 97.8 F 75 18 128/74 98 10/29/18 01:12 10/29/18 01:12 10/29/18 01:12 10/29/18 01:12 10/29/18 01:12 Vital Signs Reviewed: Yes Appearance: Positive: Well-Appearing Skin: Positive: Warm Head/Face: Positive: Normal Head/Face Inspection Eyes: Positive: Normal ENT: Positive: Normal ENT inspection Neck: Positive: Supple Respiratory/Lung Sounds: Positive: Clear to Auscultation Cardiovascular: Positive: Normal Abdomen Description: Positive: Nontender Musculoskeletal: Positive: Normal Neurological: Positive: Normal Psychiatric: Positive: Normal AVPU Assessment: Alert - Jose Guadalupe Coma Scale Best Eye Response: 4 - Spontaneous Best Motor Response: 6 - Obeys Commands Best Verbal Response: 5 - Oriented Coma Scale Total: 15 Diagnostics - Vital Signs Vital Signs Temp Pulse Resp BP Pulse Ox 10/29/18 01:12 97.8 F 75 18 128/74 98 - Laboratory Lab Statement: Any lab studies that have been ordered have been reviewed, and results considered in the medical decision making process. Course/Dx - Course Course Of Treatment: Patient presents with PD for legal blood draw. Denies any medical or physical complaints.Physical exam unremarkable. Vital signs within normal limits. Discharge in stable condition into the care of PD. - Diagnoses Provider Diagnoses: Encounter for medical screening examination Discharge - Sign-Out/Discharge Documenting (check all that apply): Patient Departure - Discharge Plan Condition: Stable Disposition: HOME Referrals: Tim Reed MD [Primary Care Provider] - - Billing Disposition and Condition Condition: STABLE Disposition: Home
[2018-10-29 02:21] VITALS: BP 111/65
== END 2018-10-29 02:19 | disposition home or self-care (01) ==
LOC: ED 01:10
DX: Z04.89 Encounter for examination and observation for other specified reasons (principal); F17.210 Nicotine dependence, cigarettes, uncomplicated
CPT/HCPCS: 99282

== ENCOUNTER 2019-07-01 17:58 | Emergency (ER) | payer OTHER ==
--- OUTSIDE RECORDS SUMMARY | 2019-07-01 18:04 | XMS REPORT | Continuity of Care Document ---
:1990 External Reference #:[id number] Author Name Tim Reed M.D. 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 Onset: 09/07/2014 Anxiety state Tim Reed M.D. Onset: 09/07/2014 Opioid dependence, uncomplicated Tim Reed M.D. Onset: 06/18/2015 Dysthymic disorder Tim Reed M.D. Onset: 09/14/2015 Social History Type Date Description Comments Sex Unknown Tobacco Use Reviewed: current cigarette 1ppd 06/24/14 smoker ETOH Use 06/24/2014 Denies alcohol use Recreational Drug Use Has Used Illegal Drugs smoking MJ at age 14, In The Past opiates startin at age 17 (initially pills, then progressively stronger meds, to Opana and Oxy, then to heroin (snorted, never used IV drugs). 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 Tobacco Use Reviewed: Patient is a current ~12 cigarettes/day 01/22/19 smoker, smokes every day Smoking Status Reviewed: Patient is a current ~12 cigarettes/day 01/22/19 smoker, smokes every day Exercise Type/Frequency Exercises regularly Sun Exposure Uses sunscreen Seat Belt/Car Seat Seat Belt Use - Yes Smoke Alarms Yes smoke alarm Allergies, Adverse Reactions, Alerts Active Allergies Reaction Severity Comments Date Penicillins anaphylactic reaction 06/24/2014 Sulfa hallucinating, skin sunburned 11/19/2015 Medications Active Medications SIG Qnty Indications Ordering Provider Date Buprenorphine HCL 1 tablet 90tabs F11.20 Tim Reed, 10/25/2018 8mg 3x/day; M.D. Tablets Sub prescriber# [id number]; rx due 05/23/19 Sertraline HCL Take 1 Tablet 30tabs O90.6 Tim Reed, 01/08/2018 100mg By Mouth Every M.D. Tablets Day For Mood F34.1 F41.9 Omeprazole 1 by mouth every 30caps K29.00 Tim Reed, 10/31/2017 40mg morning for belly M.D. Capsules DR pain/acid reflux K21.9 Famotidine Take One Tablet By 30tabs K29.00 Tim Reed, 10/31/2017 20mg Tablets Mouth 10 Minutes M.D. Before Supper For Belly Pain/Acid Reflux K21.9 Sucralfate 1 tab 1 hour before 40tabs K29.00 Tim Reed, 10/31/2017 1gm Tablets meals or food and M.D. at bedtime; as needed for burning belly pain Ibuprofen 1 by mouth every 8 724.5 Tim Reed, 08/18/2014 800mg Tablets hours as needed for M.D. back pain Gabapentin Take 1 Tablet By 90tabs F41.9 Tim Reed, 08/15/2014 600mg Tablets Mouth Every Day AT M.D. 9Am, 12PM, And 5PM as Needed Medications Administered in Office Medication SIG Qnty Indications Ordering Provider Date TB Intradermal Test Nurse's Schedule 05/05/2019 Injection Immunizations CPT Code Status Date Vaccine Lot # [id number] Given 06/21/2018 Influenza Virus Vaccine, Quadrivalent, Split, [id number] Preservative Free [id number] Given 07/02/2017 Influenza Virus Vaccine, Quadrivalent, Split, [id number] Preservative Free 02087 Given 07/14/2016 Influenza Virus Vaccine, Quadrivalent, Split, [id number] Preservative Free 80546 Given 07/26/2015 Influenza Virus Vaccine, Quadrivalent, Split, Preservative Free [id number] Given 07/19/2015 Adacel or Boostrix, TDaP Vital Signs Date Vital Result Comment 05/21/2019 11:37am BP Systolic 112 mmHg BP Diastolic 70 mmHg 04/21/2019 11:44am BP Systolic 120 mmHg BP Diastolic 72 mmHg Weight 182.00 lb Results Test Date Facility Test Result H/L Range Note Urine Drug Screen Inhouse 03/25/2019 In House [facility] Cocaine - Ua Opiates - Ua Amphetamines - Urine Methanphetamines - Urine Benzodiazepines QN [place] - Urine Oxycodone QL - Urine Drug Screen Inhouse 12/18/2018 In House [facility] Cocaine - Ua Opiates - Ua Amphetamines - Urine Methanphetamines - Urine Benzodiazepines QN [place] - Urine Oxycodone QL - Laboratory test 12/11/2018 [facility] Cytology SEE RESULT 1 finding [phone] BELOW GC/Chlamydia 12/11/2018 [facility] Chlamydia Negative Negative Amplified Rna [phone] trachomatis Rna Neisseria gonorrhoeae (GC) Rna Negative Negative 1 SEE RESULT BELOW Name: GINA WHITTAKER : [address]: Kavitha HILL Acct: [id number] Unit: [id number] AGE: 28 Location: [facility] Re12/11/18 SEX: F Status: REG REF SPEC: [id number] DENNY: 12/11/18-[address]: Kavitha HILL REQ: [id number] RECD: 12/11/181706 STATUS: SOUT _ ORDERED: TP IMAGE ANALYS, SPINDLE CARVER PHYS INTERP, HPV/Thin Prep COMMENTS: [id number] EPITHELIAL CELL ABNORMALITIES Low grade squamous intraepithelial lesion (LSIL) Date Time Test Result Flag (u) Normal Range 12/11/18 1112 @ HPV RNA POSITIVE An Negative @ @ The high-risk HPV types detected by the assay include: 16, @ 18, 31, 33, 35, 39, 45, 51, 52, 56, 58, 59, 66, and 68. A. Ectocervical/Endocervical Specimen Adequacy: Satisfactory of evaluation Transformation zone component identified Patient Information: HPV: High risk HPV RNA testing regardless of pap results. Actual Specimen Date: 12/11/18 LMP If Unknown: 11/2018 Spec Date if unknown: 2014 ?: N Post Menopausal?: N Hysterectomy?: N Previous Abnormal Pap Smears?:Y If Yes, enter Diagnosis: Low grade squamous intraepithelial lesion. HPV Signed by and Reported on: Tammie Perez MD 12/13/18 1544 This Pap test was evaluated with the assistance of the [employer] Test Imaging System. Due to cytologic findings at the educational technologist microscope, comprehensive manual rescreening by a Turn Down Worker may be required. The Pap Smear is a screening test designed to aid in the detection of premalignant and malignant conditions of the uterine cervix. It is not a diagnostic procedure and should not be used as the sole means of detecting cervical cancer. Both false- positive and false- negative reports do occur. Depending on your risk status, a Pap smear should be obtained and evaluated every 1-3 years. END OF REPORT DEPARTMENT OF PATHOLOGY, [address] [place] [address] Rubens Workman M.D. Director [facility] # [id number] Procedures Date Code Description Status 12/11/2018 90928 IUD Removal Completed Medical Devices Description No Information Available Encounters Type Date Location Provider Dx Diagnosis Office Visit 05/21/2019 Main Office Tim Reed F11.20 Opioid dependence, 11:00a Rodney uncomplicated R87.612 Low grade intrepith lesion cyto smr crvx (LGSIL) Z71.51 Drug abuse counseling and surveillance of drug abuser Office Visit 04/21/2019 11:00a Main Office Arely Reed.20 Opioid Tim jaffe M.D. uncomplicated R87.612 Low grade intrepith lesion cyto smr crvx (LGSIL) Z71.51 Drug abuse counseling and surveillance of drug abuser Office Visit 03/21/2019 1:15p Main Office Arely Reed.20 Opioid Tim jaffe M.D. uncomplicated R87.612 Low grade intrepith lesion cyto smr crvx (LGSIL) Z71.51 Drug abuse counseling and surveillance of drug abuser Office Visit 02/12/2019 11:30a Main Office Zulema Reed20 Opioid dependenceTim M.D. uncomplicated Office Visit 01/22/2019 2:45p Main Office Arely Reed.20 Opioid dependenceTim M.D. uncomplicated F17.210 Nicotine dependence, cigarettes, uncomplicated Z71.51 Drug abuse counseling and surveillance of drug abuser Office Visit 12/18/2018 11:15a Main Office Yayo Reed1.20 Opioid Tim jaffe M.D. uncomplicated R87.612 Low grade intrepith lesion cyto smr crvx (LGSIL) Z71.51 Drug abuse counseling and surveillance of drug abuser Office Visit 12/11/2018 10:40a Main Office Kavitha Calohun PA Z12.4 Encounter for screening for malignant neoplasm of cervix Z30.432 Encounter for removal of intrauterine contraceptive device Z11.3 Encntr screen for infections w sexl mode of transmiss F17.210 Nicotine dependence, cigarettes, uncomplicated T83.84xA Pain due to genitourinary prosth dev/grft, initial encounter Assessments Date Code Description Provider 05/21/2019 F11.20 Opioid dependence, uncomplicated Tim Reed M.D. 05/21/2019 R87.612 Low grade squamous intraepithelial lesion Tim Reed M.D. on cytologic smear 05/21/2019 Z71.51 Drug abuse counseling and surveillance of Tim Reed M.D. drug abuser 05/07/2019 Z11.1 Encounter for screening for respiratory Nurse's Schedule tuberculosis 05/05/2019 Z11.1 Encounter for screening for respiratory Nurse's Schedule tuberculosis 04/21/2019 F11.20 Opioid dependence, uncomplicated Tim Reed M.D. 04/21/2019 R87.612 Low grade squamous intraepithelial lesion Tim Reed M.D. on cytologic smear 04/21/2019 Z71.51 Drug abuse counseling and surveillance of Tim Reed M.D. drug abuser 03/25/2019 F11.20 Opioid dependence, uncomplicated Tim Reed M.D. 03/21/2019 F11.20 Opioid dependence, uncomplicated Tim Reed M.D. 03/21/2019 R87.612 Low grade squamous intraepithelial lesion Tim Reed M.D. on cytologic smear 03/21/2019 Z71.51 Drug abuse counseling and surveillance of Tim Reed M.D. drug abuser 02/12/2019 F11.20 Opioid dependence, uncomplicated Tim Reed M.D. 01/22/2019 F11.20 Opioid dependence, uncomplicated Tim Reed M.D. 01/22/2019 F17.210 Nicotine dependence, cigarettes, Tim Reed M.D. uncomplicated 01/22/2019 Z71.51 Drug abuse counseling and surveillance of Tim Reed M.D. drug abuser 12/18/2018 F11.20 Opioid dependence, uncomplicated Tim Reed M.D. 12/18/2018 R87.612 Low grade squamous intraepithelial lesion Tim Reed M.D. on cytologic smear 12/18/2018 Z71.51 Drug abuse counseling and surveillance of Tim Reed M.D. drug abuser 12/11/2018 Z12.4 Encounter for screening for malignant Kavitha Calhoun PA neoplasm of cervix 12/11/2018 Z30.432 Encounter for removal of intrauterine Kavitha Calhoun PA contraceptive device 12/11/2018 Z11.3 Encounter for screening for infections with Kavitha Calhoun PA a predominantly 12/11/2018 F17.210 Nicotine dependence, cigarettes, Kavitha Calhoun PA uncomplicated 12/11/2018 T83.84xA Pain due to genitourinary prosthetic Kavitha Calhoun PA devices, implants and g Plan of Treatment Future Appointment(s):06/18/2019 1:45 pm - Tim Reed M.D. at Main [id number]/21/2019 - Tim Reed M.D.F11.20 Opioid dependence, qusptmliffozgZ70.612 Low grade squamous intraepithelial lesion on cytologic smearComments:Will refer her back to Dr Cohen next Spring/Summer to get repeat cervical CA screenign wc she willbe due for in May. Mary/Alan hplxlghH68.51 Drug abuse counseling and surveillance of drug abuser Functional Status Description No Information Available Mental Status Description No Information Available Referrals Refer to Reason for Referral Status Appt Date [facility] [employer] [facility] LGSIL w positive HPV colposcopy Closed 2018 [address] [place] [address] [phone]
--- OUTSIDE RECORDS SUMMARY | 2019-07-01 18:04 | XMS REPORT | Continuity of Care Document ---
:1990 External Reference #:[id number] Author Name Tim Reed M.D. 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 Tablets Sub prescriber# [id number]; rx due 06/22/19 Sertraline HCL Take 1 Tablet 30tabs O90.6 [...] CPT Code Status Date Vaccine Lot # [id number] Given 06/21/2018 Influenza Virus Vaccine, Quadrivalent, Split, [id number] Preservative Free 72367 Given 07/02/2017 Influenza Virus Vaccine, Quadrivalent, Split, [id number] Preservative Free 40569 Given 07/14/2016 Influenza Virus Vaccine, Quadrivalent, Split, [id number] Preservative Free 44219 Given 07/26/2015 Influenza Virus Vaccine, Quadrivalent, Split, Preservative Free 71600 Given 07/19/2015 Adacel or Boostrix, TDaP Vital Signs Date Vital Result Comment 06/18/2019 1:34pm BP Systolic 124 mmHg BP Diastolic 68 mmHg 05/21/2019 11:37am BP Systolic 112 mmHg BP Diastolic 70 mmHg Results Test Date Facility Test Result H/L Range Note Urine Drug Screen Inhouse 03/25/2019 In House Ua Cocaine - Ua Opiates - Ua Amphetamines - Urine Methanphetamines - Urine Benzodiazepines QN [place] - Urine Oxycodone QL - Urine Drug Screen Inhouse 12/18/2018 In House Ua Cocaine - Ua Opiates - Ua Amphetamines - Urine Methanphetamines - Urine Benzodiazepines QN [place] - Urine Oxycodone QL - Procedures Description No Information Available Medical Devices Description No Information Available Encounters Type Date Location Provider Dx Diagnosis Office Visit 06/18/2019 Main Office Tim Reed F11.20 Opioid dependence, 1:45p M.DNestor uncomplicated Office Visit 05/21/2019 Main Office Tim Reed F11Nestor20 Opioid dependence, 11:00a M.DNestor uncomplicated R87.612 Low grade intrepith lesion cyto smr crvx (LGSIL) Z71.51 Drug abuse counseling and surveillance of drug abuser Office Visit 04/21/2019 11:00a Main Office Yayo Reed1.20 Opioid dependenceTim M.D. uncomplicated R87.612 Low grade intrepith lesion cyto smr crvx (LGSIL) Z71.51 Drug abuse counseling and surveillance of drug abuser Office Visit 03/21/2019 1:15p Main Office Yayo Reed1.20 Opioid dependenceTim M.D. uncomplicated R87.612 Low grade intrepith lesion cyto smr crvx (LGSIL) Z71.51 Drug abuse counseling and surveillance of drug abuser Office Visit 02/12/2019 11:30a Main Office Derek F11.20 Opioid dependenceTim M.D. uncomplicated Office Visit 01/22/2019 2:45p Main Office Yayo Reed1.20 Opioid dependenceTim M.D. uncomplicated F17.210 Nicotine dependence, cigarettes, uncomplicated Z71.51 Drug abuse counseling and surveillance of drug abuser Office Visit 12/18/2018 11:15a Main Office Derek F11.20 Opioid dependenceTim M.D. uncomplicated R87.612 Low grade intrepith lesion cyto smr crvx (LGSIL) Z71.51 Drug abuse counseling and surveillance of drug abuser Assessments Date Code Description Provider 06/18/2019 F11.20 Opioid dependence, uncomplicated Tim Reed M.D. 05/21/2019 F11.20 Opioid dependence, uncomplicated Tim Reed M.D. 05/21/2019 R87.612 Low grade squamous intraepithelial lesion on Tim Reed M.D. cytologic smear 05/21/2019 Z71.51 Drug abuse counseling and surveillance of Tim Reed M.D. drug abuser 05/07/2019 Z11.1 Encounter for screening for respiratory Nurse's Schedule tuberculosis 05/05/2019 Z11.1 Encounter for screening for respiratory Nurse's Schedule tuberculosis 04/21/2019 F11.20 Opioid dependence, uncomplicated Tim Reed M.D. 04/21/2019 R87.612 Low grade squamous intraepithelial lesion on Tim Reed M.D. cytologic smear 04/21/2019 Z71.51 Drug abuse counseling and surveillance of Tim Reed M.D. drug abuser 03/25/2019 F11.20 Opioid dependence, uncomplicated Tim Reed M.D. 03/21/2019 F11.20 Opioid dependence, uncomplicated Tim Reed M.D. 03/21/2019 R87.612 Low grade squamous intraepithelial lesion on Tim Reed M.D. cytologic smear 03/21/2019 Z71.51 Drug abuse counseling [...] 12/18/2018 R87.612 Low grade squamous intraepithelial lesion on Tim Reed M.D. cytologic smear 12/18/2018 Z71.51 Drug abuse counseling and surveillance of Tim Reed M.D. drug abuser Plan of Treatment Future Appointment(s):07/16/2019 1:30 pm - Tim Reed M.D. at Main Zjnpiz2106/18/2019 - Tim Reed M.D.F11.20 Opioid dependence, uncomplicatedFollow up:RTO 1 month w/ flu vaccine. Functional Status Description No Information Available Mental Status Description No Information Available Referrals Description No Information Available
[2019-07-01 19:14] VITALS: BP 131/58
--- NOTE | 2019-07-01 19:49 | UC ---
Hand/Wrist HPI - HPI Summary HPI Summary: 28 yo female presents with index finger pain. She tells me that last night she accidentally slammed her right index finger into a car door. Today has had increased swelling and pain. She has a ring on her finger that she did not remove and now cannot remove due to pain and swelling. She is right handed. - History Of Current Complaint Chief Complaint: UCUpperExtremity Stated Complaint: HAND INJURY Time Seen by Provider: 07/01/19 19:49 Hx Obtained From: Patient Hx Last Menstrual Period: bc Onset/Duration: Gradual Onset Severity Initially: Moderate Severity Currently: Severe Pain Intensity: 8 Pain Scale Used: 0-10 Numeric - Allergies/Home Medications Allergies/Adverse Reactions: Allergies Allergy/AdvReac Type Severity Reaction Status Date / Time Penicillins Allergy Anaphylatic Verified 07/01/19 19:15 Shock Sulfa (Sulfonamide Allergy Unknown Verified 07/01/19 19:15 Antibiotics) Reaction Details Home Medications: Home Medications Acetaminophen [Tylenol] 650 mg PO Q6HR 07/01/19 [History Confirmed 07/01/19] Ibuprofen TAB* [Motrin TAB* 400 MG] 400 mg PO Q6HR 07/01/19 [History Confirmed 07/01/19] PMH/Surg Hx/FS Hx/Imm Hx - Additional Past Medical History Additional PMH: None Other History Of: Negative For: Anticoagulant Therapy - Surgical History Surgical History: Yes Surgery Procedure, Year, and Place: TONSILLECTOMY - Family History Known Family History: Positive: Non-Contributory - Social History Lives: With Family Alcohol Use: None 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 Substance Use Type: None Substance Use Comment - Amount & Last Used: Recently completed [employer] for [employer] Smoking Status (MU): Light Every Day Tobacco Smoker Type: Cigarettes Amount Used/How Often: 8-9 cigs Length of Time of Smoking/Using Tobacco: years Have You Smoked in the Last Year: Yes Household Exposure Type: Cigarettes - Immunization History Most Recent Influenza Vaccination: 06/17/15 Most Recent Tetanus Shot: 06/24/15 Most Recent Pneumonia Vaccination: never Review of Systems All Other Systems Reviewed And Are Negative: No Constitutional: Positive: Negative Skin: Positive: Negative Respiratory: Positive: Negative Cardiovascular: Positive: Negative Neurovascular: Positive: Negative Musculoskeletal: Positive: Other: - Right index finger Neurological: Positive: Negative Psychological: Positive: Negative Physical Exam - Summary Physical Exam Summary: GENERAL: NAD. WDWN. No pain distress. SKIN: No rashes, sores, lesions, or open wounds. CHEST: No accessory muscle use. Breathing comfortably and in no distress. CV: Pulses intact radial and ulnar. Cap refill <2seconds MSK: RIGHT index finger: Moderate edema about finger distal to ring just above MCP. FROM, but has pain. S/p ring removal FROM at MCP, PIP, and DIP. TTP about entire finger NEURO: Alert. Sensations intact hand and all fingers. PSYCH: Age appropriate behavior. Triage Information Reviewed: Yes Vital Signs: Initial Vital Signs Temp 99.2 F 07/01/19 19:09 Pulse 93 07/01/19 19:09 Resp 18 07/01/19 19:09 BP 131/58 07/01/19 19:09 Pulse Ox 99 07/01/19 19:09 Vital Signs Reviewed: Yes Diagnostics - Radiology Finger Radiology Interpretation Completed By: ED Physician Summary of Radiographic Findings: No fx Hand/Wrist Course/Dx - Course Course Of Treatment: XR wet read negative for fracture. Ring removed with ring cutters without difficulty. Suspect contusion and increased pain due to having ring on finger. Pt states finger feels numb s/p ring removal, but can feel pressure and pain on exam to distal finger. Suspect this numb sensation is due to the degree of edema and will subside now that ring has been removed. Pt was advised to rest, ice, and elevate her finger. Use finger splint for comfort. - Differential Dx/Diagnosis Provider Diagnosis: Crush injury to finger Discharge ED - Sign-Out/Discharge Documenting (check all that apply): Patient Departure All imaging exams completed and their final reports reviewed: No - Discharge Plan Condition: Stable Disposition: HOME Patient Education Materials: Crush Injury (ED) Referrals: Tim Reed MD [Primary Care Provider] - Additional Instructions: If you develop a fever, shortness of breath, chest pain, new or worsening symptoms - please call your PCP or go to the ED immediately. 1) Rest, Ice, and elevate your finger to decrease pain and swelling 2) Use the finger splint as needed for comfort 3) May take tylenol/ibuprofen as directed for discomfort - Billing Disposition and Condition Condition: STABLE Disposition: Home
== END 2019-07-01 20:32 | disposition home or self-care (01) ==
LOC: UCEAST 17:58
DX: S67.194A Crushing injury of right ring finger, initial encounter (principal); R20.0 Anesthesia of skin; F17.210 Nicotine dependence, cigarettes, uncomplicated; Z88.0 Allergy status to penicillin; Z88.2 Allergy status to sulfonamides; W23.0XXA Caught, crushed, jammed, or pinched between moving objects, initial encounter; Y92.9 Unspecified place or not applicable
CPT/HCPCS: 73140; 99211; G0463

== ENCOUNTER 2022-06-06 02:49 | Inpatient (IN) ==
[2022-06-06] MEDS ORDERED: Buffered Lidocaine 1% SYRIN 1 ml INTRADERM ONE (03:21)
[2022-06-06] MEDS ORDERED: Lactated Ringers 1000 ml BAG 1,000 ML IV ONE ×2 (03:21→04:11)
[2022-06-06 03:25] LABS: ABS Basophils 0.1 10^3/ul (0-0.2); ABS Lymphocytes 2.5 10^3/ul (1.0-4.8); ABS Monocytes 0.9 10^3/ul (0-0.8); ABS Neutrophils 8.8 10^3/ul (1.5-7.7); Eosinophil % 0.3 %; Hematocrit 37 % (35-47); Hemoglobin 12.3 g/dL (12.0-16.0); Lymphocyte % 20.5 %; Mean Corpuscular HGB Conc 33 g/dL (31-36); Mean Corpuscular Hemoglobin 28 pg (27-31); Mean Corpuscular Volume 86 fL (80-97); Mean Platelet Volume 9.1 fL (7.4-10.4); Platelet Count 199 10^3/uL (150-450); Red Blood Count 4.32 10^6 /uL (3.70-4.87); Red Cell Distribution Width 13 % (10-15); White Blood Count 12.4 10^3/uL (3.5-10.8)
[2022-06-06] MEDS ORDERED: Lidocaine 1.5% EPI 1:200,000 30 ML SDV ONE (03:40)
[2022-06-06] MEDS ORDERED: OBEPIDURAL (200 ML) 200 ML EPIDURAL ONE (03:40)
[2022-06-06 03:58] LABS: ALT 10 U/L (7-52); AST 13 U/L (13-39); Albumin 3.3 g/dL (3.2-5.2); Albumin/Globulin Ratio 0.9 (1-3); Alkaline Phosphatase 211 U/L (35-149); Anion Gap 13 mmol/L (2-11); Blood Urea Nitrogen 7 mg/dL (6-24); CO2 Carbon Dioxide 22 mmol/L (22-32); Calcium 8.9 mg/dL (8.6-10.3); Chloride 103 mmol/L (101-111); Globulin 3.5 g/dL (2-4); Glucose 115 mg/dL (70-100); Potassium 3.7 mmol/L (3.5-5.0); Sodium 138 mmol/L (135-145); Total Protein 6.8 g/dL (6.4-8.9); eGFR CKD-EPI 125.6 (>60)
[2022-06-06] MEDS ORDERED: Lactated Ringers 1000 ml BAG 1,000 ML IV SCH ×4 (04:00→07:00)
[2022-06-06] MEDS ORDERED: Sodium Citrate/Citric Acid LIQ 15 ML UDC PO PRN (04:11)
[2022-06-06] MEDS ORDERED: Phenylephrine 40 mcg/mL 10mL (400mcg) SYRINGE IV PUSH PRN ×2 (04:11)
[2022-06-06] MEDS ORDERED: Lactated Ringers 1000 ml BAG 500 ML IV PRN (04:11)
[2022-06-06 04:24] LABS: Rubella Screen IgG Immune (Immune)
[2022-06-06 04:33] LABS: HIV 4th Generation Nonreactive (Nonreactive)
[2022-06-06] MEDS ORDERED: OBEPIDURAL (200 ML) 200 ML EPIDURAL SCH (05:00)
[2022-06-06 05:02] LABS: Urine Benzodiazepine Screen None Detected (None Detect); Urine Cannabinoids Screen None Detected (None Detect); Urine Opiates Screen None Detected (None Detect)
[2022-06-06] MEDS ORDERED: Oxytocin in LR 20,000 MILLI.UNIT/1,000 ML BAG IV ONE (05:25)
[2022-06-06 06:31] LABS: Hepatitis C Antibody Reactive (Negative)
[2022-06-06] MEDS ORDERED: Witch Hazel PAD JAR TOPICAL PRN (06:42)
[2022-06-06] MEDS ORDERED: Dibucaine 1% OINT 28.35 GM TUBE PR PRN (06:42)
[2022-06-06] MEDS ORDERED: Glycerin ADULT 2.4 gm SUPP PR PRN (06:42)
[2022-06-06] MEDS ORDERED: Tetan/Diph/Pertus SYR(Tdap) 0.5 ML SYR(BOOSTRIX) use SYR contains LATEX IM ONE (06:42)
[2022-06-06] MEDS ORDERED: Oxytocin in LR 20,000 MILLI.UNIT/1,000 ML BAG IV SCH (06:45)
[2022-06-06] MEDS ORDERED: Buprenorphine 2 mg SL TAB SL SCH (09:00)
[2022-06-06 11:49] VITALS: BP 126/70
[2022-06-07 08:01] LABS: Hepatitis B Surface Antigen Nonreactive (Nonreactive)
== END 2022-06-06 13:10 | disposition left against medical advice (07) | DRG 560 ==
LOC: MCHOBOUT 02:49 → MCHOB 02:56
PROVIDERS: ADMIT Obstetrics & Gynecology; ATTEND Obstetrics & Gynecology